=== PATIENT | female | born 1990 | race Caucasian/White ===

== ENCOUNTER 2018-09-24 08:00 | Outpatient (CLI) | payer OTHER ==
[2018-09-24 12:39] LABS: EOSINOPHILS # (AUTO) 0.1 10^3/uL (0.0-0.7); EOSINOPHILS % (AUTO) 2.5 %; HGB - HEMOGLOBIN 12.6 g/dL (12.0-16.0); LYMPHOCYTES # (AUTO) 1.3 10^3/uL (1.5-3.5); LYMPHOCYTES % (AUTO) 34.2 %; MEAN CORPUSCULAR HEMOGLOBIN 32.7 pg (27.0-31.0); MEAN CORPUSCULAR HGB CONC 34.1 g/dL (32.0-36.0); MEAN CORPUSCULAR VOLUME 95.9 fL (81.0-99.0); MEAN PLATELET VOLUME 8.4 fL (7.9-10.8); MONOCYTES # (AUTO) 0.4 10^3/uL (0.0-1.0); NEUTROPHILS % (AUTO) 52.3 %; PLT - PLATELET COUNT 238 10^3/uL (130-450); RED BLOOD COUNT 3.85 10^6/uL (4.20-5.40); RED CELL DISTRIBUTION WIDTH 12.9 % (12.0-15.0); WHITE BLOOD COUNT 3.8 x10^3/uL (4.8-10.8)
[2018-09-24 12:57] LABS: ALBUMIN 4.1 g/dL (3.2-5.5); ALBUMIN/GLOBULIN RATIO 1.4 (1.0-2.2); BILIRUBIN,TOTAL 0.9 mg/dL (0.2-1.0); CALCIUM 9.4 mg/dL (8.5-10.3); CREATININE 0.7 mg/dL (0.4-1.0); TOTAL PROTEIN 7.1 g/dL (6.7-8.2)
[2018-09-24 13:08] LABS: THYROID STIMULATING HORMONE 1.07 uIU/mL (0.34-5.60)
[2018-09-24 13:19] LABS: FOLATE 20.5 ng/mL (5.90 - >24.8)
[2018-09-26 14:36] LABS: ANA SCREEN NEGATIVE (NEGATIVE)
== END 2018-09-24 23:59 | disposition home or self-care (01) ==
LOC: LAB.N 08:00
PROVIDERS: ATTEND Nurse Practitioner
DX: R53.83 Other fatigue (principal); E55.9 Vitamin D deficiency, unspecified
CPT/HCPCS: 36415; 80053; 82306; 82607; 82746; 84443; 85025; 86038

== ENCOUNTER 2018-09-26 08:00 | Outpatient (CLI) | payer OTHER ==
[2018-09-26 09:08] LABS: % IRON SATURATION 28 % (20-50); IRON 92 ug/dL (28-170); TOTAL IRON BINDING CAPACITY 328 ug/dL (250-450); TRANSFERRIN 234 mg/dL (192-382)
== END 2018-09-26 23:59 | disposition home or self-care (01) ==
LOC: LAB.R 08:00
PROVIDERS: ATTEND Nurse Practitioner
DX: D72.819 Decreased white blood cell count, unspecified (principal); D64.9 Anemia, unspecified
CPT/HCPCS: 82728; 83540; 84466

== ENCOUNTER 2018-11-18 15:45 | Outpatient (CLI) | payer OTHER ==
--- NOTE | 2018-11-19 00:52 | Ultrasound Report ---
Reason: TEST POSITIVE Procedure Date: 11/18/2018 Accession Number: [id number] / [id number] Procedure: US - OB First Trimester CPT Code: FULL RESULT: EXAM: FIRST TRIMESTER OBSTETRIC ULTRASOUND (Less than 11 weeks) EXAM DATE: 11/18/2018 04:22 PM. CLINICAL HISTORY: test positive. LMP: Unknown. COMPARISONS: None. TECHNIQUE: Transabdominal ultrasound examination with static image documentation. CLINICAL DATES: EGA 8 weeks 2 days with BON 06/28/2019 based on LMP. ASSESSMENT: Gestational Sac: Single intrauterine. Embryo: CRL (crown-rump length) 17.5 mm = 8 weeks 2 days with an BON of 06/28/2019. Cardiac activity: 183 beats per minute. Yolk sac: 3 mm. Amniotic fluid: Not accurately assessed at this gestational age. Early placenta: Not visible at this gestational age. Other: Small perigestational hemorrhage measuring 1 x 1.8 x 0.7 cm noted. MATERNAL STRUCTURES: Uterus: Anteverted. Unremarkable. Cervix: Closed. Right Ovary/Adnexa: Ovary not seen. No adnexal abnormality. Limitation secondary to bowel gas.. Left Ovary/Adnexa: The ovary measures 5.2 x 3 x 4.8 cm, volume 39.1 cc. 3.2 x 3 x 3.2 cm complex left ovarian cyst with debris and mild peripheral flow. No mural nodules or thickened septations. Free Fluid: None. Other: None. IMPRESSION: 1. Single viable intrauterine at EGA 8 weeks 2 days with BON 06/28/2019 based on crown-rump length, which is concordant with clinical dates. 2. Assigned dating is BON 06/28/2019 based on LMP. 3. Small perigestational hemorrhage measuring 1 x 1.8 x 0.7 cm. 4. 3.2 cm complex left ovarian cyst most compatible with a corpus luteum or hemorrhagic cyst. Otherwise, both ovaries and adnexa are normal. RADIA
== END 2018-11-18 15:46 | disposition home or self-care (01) ==
LOC: DI 15:45
PROVIDERS: ATTEND Nurse Practitioner Obstetrics & Gynecology
DX: O34.81 Maternal care for other abnormalities of pelvic organs, first trimester (principal); N83.202 Unspecified ovarian cyst, left side; Z3A.08 8 weeks gestation of pregnancy
CPT/HCPCS: 76801

== ENCOUNTER 2018-11-28 08:00 | Outpatient (CLI) | payer OTHER ==
[2018-11-28 14:50] LABS: MUDS CUTOFF CONCENTRATIONS CUTOFF CONC BELOW:
[2018-11-28 15:02] LABS: BILIRUBIN,URINE NEGATIVE (NEGATIVE); GLUCOSE, URINE (UA) NEGATIVE (NEGATIVE); KETONES,URINE (UA) NEGATIVE (NEGATIVE); LEUKOCYTE ESTERASE, URINE NEGATIVE (NEGATIVE); NITRITE,URINE NEGATIVE (NEGATIVE); OCCULT BLOOD,URINE NEGATIVE (NEGATIVE); PROTEIN,URINE NEGATIVE (NEGATIVE); UROBILINOGEN,URINE 0.2 (NORMAL) E.U./dL (NORMAL)
[2018-11-28 15:04] LABS: CLARITY,URINE CLEAR (CLEAR)
[2018-11-28 15:12] LABS: BACTERIA,URINE None Seen /HPF (None Seen); RBC,URINE None Seen /HPF (0-5); SQUAMOUS EPITHELIAL CELL,UR MOD Squamous (<= Few)
[2018-11-28 15:15] LABS: AMPHETAMINE SCREEN,URINE NEGATIVE (NEGATIVE); BENZODIAZEPINES SCREEN, URINE NEGATIVE (NEGATIVE); COCAINE SCREEN URINE NEGATIVE (NEGATIVE); METHADONE SCREEN, URINE NEGATIVE (NEGATIVE); METHAMPHETAMINES SCREEN, URINE NEGATIVE (NEGATIVE); OPIATE SCREEN, URINE NEGATIVE (NEGATIVE); OXYCODONE SCREEN, URINE NEGATIVE (NEGATIVE); PROPOXYPHENE SCREEN, URINE NEGATIVE (NEGATIVE); TRICYCLIC ANTIDEPRESSANT,URINE NEGATIVE (NEGATIVE)
== END 2018-11-28 23:59 | disposition home or self-care (01) ==
LOC: LAB.R 08:00
PROVIDERS: ATTEND Nurse Practitioner Obstetrics & Gynecology
DX: Z36.89 Encounter for other specified antenatal screening (principal)
CPT/HCPCS: 80306; 81001; 87086

== ENCOUNTER 2018-11-28 11:40 | Outpatient (CLI) | payer OTHER ==
[2018-11-28 12:10] LABS: BASOPHILS # (AUTO) 0.1 10^3/uL (0.0-0.1); BASOPHILS % (AUTO) 0.6 %; EOSINOPHILS % (AUTO) 0.4 %; LYMPHOCYTES # (AUTO) 1.8 10^3/uL (1.5-3.5); LYMPHOCYTES % (AUTO) 19.9 %; MEAN CORPUSCULAR HEMOGLOBIN 32.4 pg (27.0-31.0); MEAN CORPUSCULAR HGB CONC 34.3 g/dL (32.0-36.0); MEAN CORPUSCULAR VOLUME 94.4 fL (81.0-99.0); MEAN PLATELET VOLUME 7.5 fL (7.9-10.8); MONOCYTES # (AUTO) 0.6 10^3/uL (0.0-1.0); MONOCYTES % (AUTO) 6.8 %; NEUTROPHILS # (AUTO) 6.4 10^3/uL (1.5-6.6); NEUTROPHILS % (AUTO) 72.3 %; PLT - PLATELET COUNT 260 10^3/uL (130-450); RED CELL DISTRIBUTION WIDTH 12.6 % (12.0-15.0); WHITE BLOOD COUNT 8.8 x10^3/uL (4.8-10.8)
[2018-11-29 08:57] LABS: HEPATITIS C ANTIBODY NON-REACTIVE (NON-REACTIVE)
[2018-11-29 08:58] LABS: HEPATITIS B SURFACE ANTIGEN NON-REACTIVE (NON-REACTIVE)
[2018-11-29 13:18] LABS: HIV AG/AB 4TH GEN NON-REACTIVE (NON-REACTIVE)
== END 2018-11-28 11:41 | disposition home or self-care (01) ==
LOC: LAB 11:40
PROVIDERS: ATTEND Nurse Practitioner Obstetrics & Gynecology
DX: Z36.89 Encounter for other specified antenatal screening (principal)
CPT/HCPCS: 36415; 80306; 81001; 81599; 85025; 86592; 86762; 86803; 86850; 86900; 86901; 87340; 87389

== ENCOUNTER 2019-01-25 | Outpatient (CLI) | payer OTHER | END 2019-01-25 23:59 | disposition home or self-care (01) ==

== ENCOUNTER 2019-01-31 09:05 | Outpatient (CLI) | payer OTHER ==
--- NOTE | 2019-02-01 09:55 | Ultrasound Report ---
Reason: ENCOUNTER FOR OTHER SPECIFIED SCREENING Procedure Date: 01/31/2019 Accession Number: [id number] / [id number] Procedure: US - OB Detailed Eval CPT Code: FULL RESULT: EXAM: COMPLETE OBSTETRICAL ULTRASOUND EXAM DATE: 01/31/2019 11:31 AM. CLINICAL HISTORY: anatomic survey. COMPARISON: None. TECHNIQUE: Real-time sonographic evaluation of the fetus performed by the removable prosthodontist. Multiple manufacturers representative static images were saved for review. Additional transvaginal imaging to more accurately evaluate cervical length/placental position/etc. DATING: Established EGA 18 weeks 6 days with BON 06/28/2019 based on established date of conception. EGA 18 weeks 6 days with BON 06/28/2019 based on first ultrasound. EGA 19 weeks 0 days with BON 06/27/2019 based on the current ultrasound. GENERAL EVALUATION [place] . Cardiac activity: 146 bpm. movement: Visualized. Presentation: Cephalic. Placenta: Anterior position. No evidence for previa. Umbilical cord: 3 vessel cord. Central placental cord origin. Amniotic fluid: Subjectively normal. MVP 4.1 cm. KATE 14.2 cm. BIOMETRY Bi-Parietal Diameter (BPD): 4.0 cm, 18 weeks 2 days Head Circumference (HC): 16.0 cm, 18 weeks 6 days Abdominal Circumference (AC): 14.9 cm, 20 weeks 1 day Femur Length (FL): 2.8 cm, 18 weeks 5 days Estimated Weight: 287 g, 75 percentile for weeks/days. ANATOMY The intracranial structures, profile, face/nose/lips, spine, 4 chamber heart and outflow tracts, stomach, abdominal wall and cord insertion, diaphragm, kidneys, bladder, and extremities were visualized and demonstrate no abnormality. MATERNAL STRUCTURES Uterus: Unremarkable. Cervix: Long and closed. Transabdominal length 5.0 cm. Right ovary/adnexa: Unremarkable. Left ovary/adnexa: Unremarkable. Free fluid: None. IMPRESSION: 1. [place] live intrauterine with gestational age 18 weeks 6 days based on established later conception. 2. Estimated weight is within expected limits for assigned dating. 3. Normal anatomic survey. No anatomic abnormalities are detected at this time. RADIA
== END 2019-01-31 09:06 | disposition home or self-care (01) ==
LOC: DI 09:05
PROVIDERS: ATTEND Nurse Practitioner Obstetrics & Gynecology
DX: Z36.89 Encounter for other specified antenatal screening (principal)
CPT/HCPCS: 76811

== ENCOUNTER 2019-03-29 10:08 | Outpatient (CLI) | payer OTHER ==
[2019-03-29 11:26] LABS: HGB - HEMOGLOBIN 10.1 g/dL (12.0-16.0); MEAN CORPUSCULAR HEMOGLOBIN 32.6 pg (27.0-31.0); MEAN CORPUSCULAR HGB CONC 33.6 g/dL (32.0-36.0); MEAN CORPUSCULAR VOLUME 97.1 fL (81.0-99.0); MEAN PLATELET VOLUME 9.7 fL (7.9-10.8); RED BLOOD COUNT 3.1 10^6/uL (4.20-5.40); RED CELL DISTRIBUTION WIDTH 12.3 % (12.0-15.0); WHITE BLOOD COUNT 8.6 x10^3/uL (4.8-10.8)
== END 2019-03-29 10:09 | disposition home or self-care (01) ==
LOC: LAB 10:08
PROVIDERS: ATTEND Nurse Practitioner Obstetrics & Gynecology
DX: Z36.89 Encounter for other specified antenatal screening (principal)
CPT/HCPCS: 36415; 82950; 85027; 86850

== ENCOUNTER 2019-05-20 10:22 | Outpatient (CLI) | payer OTHER ==
[2019-05-20 10:45] LABS: HGB - HEMOGLOBIN 11.8 g/dL (12.0-16.0); MEAN CORPUSCULAR HEMOGLOBIN 31.3 pg (27.0-31.0); MEAN CORPUSCULAR HGB CONC 32.2 g/dL (32.0-36.0); MEAN CORPUSCULAR VOLUME 97.1 fL (81.0-99.0); MEAN PLATELET VOLUME 10.7 fL (7.9-10.8); RED BLOOD COUNT 3.77 10^6/uL (4.20-5.40); RED CELL DISTRIBUTION WIDTH 13.8 % (12.0-15.0); WHITE BLOOD COUNT 7.2 x10^3/uL (4.8-10.8)
== END 2019-05-20 10:23 | disposition home or self-care (01) ==
LOC: LAB 10:22
PROVIDERS: ATTEND Nurse Practitioner Obstetrics & Gynecology
DX: O99.019 Anemia complicating pregnancy, unspecified trimester (principal); Z3A.00 Weeks of gestation of pregnancy not specified
CPT/HCPCS: 36415; 85027

== ENCOUNTER 2019-06-03 10:30 | Outpatient (CLI) | payer OTHER ==
[2019-06-03 21:50] LABS: TRICHOMONAS VAGINALIS DNA NEGATIVE (NEGATIVE)
== END 2019-06-03 23:59 | disposition home or self-care (01) ==
LOC: LAB.R 10:30
PROVIDERS: ATTEND Nurse Practitioner Obstetrics & Gynecology
DX: Z36.85 Encounter for antenatal screening for Streptococcus B (principal)
CPT/HCPCS: 87491; 87591; 87661; 87797

== ENCOUNTER 2019-06-27 12:05 | Outpatient (CLI) | payer OTHER ==
[2019-06-27 12:51] LABS: BASOPHILS % (AUTO) 0.3 %; EOSINOPHILS % (AUTO) 0.3 %; HGB - HEMOGLOBIN 12.7 g/dL (12.0-16.0); MEAN CORPUSCULAR HEMOGLOBIN 31.8 pg (27.0-31.0); MEAN CORPUSCULAR HGB CONC 32.6 g/dL (32.0-36.0); MEAN CORPUSCULAR VOLUME 97.5 fL (81.0-99.0); MEAN PLATELET VOLUME 11.6 fL (7.9-10.8); MONOCYTES # (AUTO) 0.7 10^3/uL (0.0-1.0); MONOCYTES % (AUTO) 8.1 %; NEUTROPHILS % (AUTO) 67.6 %; PLT - PLATELET COUNT 186 10^3/uL (130-450); RED CELL DISTRIBUTION WIDTH 13.2 % (12.0-15.0); WHITE BLOOD COUNT 8.8 x10^3/uL (4.8-10.8)
[2019-06-27] MEDS ORDERED: ACETAMINOPHEN 500 MG TABLET PO ONE (13:00)
[2019-06-27 13:12] LABS: CREATININE,URINE 19.5 mg/dL
--- NOTE | 2019-06-27 13:15 | PROVIDER PROGRESS NOTE ---
- HPI Chief Complaint: Hypertension/PIH (28yo at 39 6/7 weeks A+ GBS neg sent from clinic for evaluation of HTN) Current : 28yo A+ GBS neg at 39 6/7 sent from clinic for evaluation of HTN 130's/95- 100. Pt notes mild posterior headache but otherwise is very anxious. Reports normal activity. No bleeding or leaking of fluid. H/O IOL for mild HTN in first . otherwise uncomplicated. H EDU 06/28/19 Gestation 39 Weeks and 6 Days 3 Para 2 Vital Signs Temperature 97.7 F 06/27/19 12:20 Heart Rate 100 06/27/19 12:20 Respiratory Rate 20 06/27/19 12:20 Blood Pressure 134/89 H 06/27/19 12:20 O2 Saturation 100 06/27/19 12:20 Temperature 97.7 F 06/27/19 12:20 Heart Rate 100 06/27/19 12:20 Respiratory Rate 20 06/27/19 12:20 Blood Pressure 134/89 H 06/27/19 12:20 O2 Saturation 100 06/27/19 12:20 - Procedures OB Procedure Performed: Other (KATE=8.6 Greatest vertical pocket 3.56cm Anterior grade 3 placenta, vertex. BPP 8/8 Category 1 tracing) NST Procedure: NST Procedure Start Date 06/27/19 Start Time 12:15 Patient States Movement Yes Findings: 28yo at 39+6 with HTN in the mild range (rpt BP's 130-140's/80-90's) labs significant only for mild thrombocytopenia and a persistent low grade headache that she feels is related to her anxiety. She does not want IOL. Extensive discussion about risks of HTN/preeclampsia and essentially no benefit of continued at this gestational age. She is not ready to make a decision yet and wants more time to discuss it w her garment liner and .
[2019-06-27 13:18] LABS: TOTAL PROTEIN,URINE TIMED < 6 mg/dL
[2019-06-27 14:47] VITALS: BP 141/87
--- NOTE | 2019-06-27 16:29 | PROVIDER PROGRESS NOTE ---
Subjective - Prog Note Date Prog Note Date: 06/27/19 Prog Note Time: 16:26 - Subjective Subjective: More discussion re plan. Pt very adamant about going home to settle her kids, etc. Discussed risks including seizure, stroke, abruption, etc. She agrees to return and not to drive herself. Precautions discussed. She will return in 1-2 hours for IOL. Cervical exam done, long/closed/posterior Will start with cervical ripening. Objective - Vital Signs/Intake & Output Vital Signs: Vital Signs x48h Temp Pulse Resp BP Pulse Ox 06/27/19 14:45 89 141/87 H 06/27/19 13:18 90 142/92 H 06/27/19 12:20 97.7 F 100 20 134/89 H 100 - Lab Results Fish Bones: 06/27/19 12:23 Other Labs: Lab Results x24hrs 06/27/19 06/27/19 06/27/19 Range/Units 12:23 12:23 12:23 WBC 8.8 (4.8-10.8) x10^3/uL RBC 4.00 L (4.20-5.40) 10^6/uL Hgb 12.7 (12.0-16.0) g/dL Hct 39.0 (37.0-47.0) % MCV 97.5 (81.0-99.0) fL MCH 31.8 H (27.0-31.0) pg MCHC 32.6 (32.0-36.0) g/dL RDW 13.2 (12.0-15.0) % Plt Count 186 (130-450) 10^3/uL MPV 11.6 H (7.9-10.8) fL Neut # (Auto) 6.0 (1.5-6.6) 10^3/uL Lymph # (Auto) 2.0 (1.5-3.5) 10^3/uL [place] # (Auto) 0.7 (0.0-1.0) 10^3/uL Eos # (Auto) 0.0 (0.0-0.7) 10^3/uL Baso # (Auto) 0.0 (0.0-0.1) 10^3/uL Absolute Nucleated RBC 0.00 x10^3/uL Nucleated RBC % 0.0 /100WBC Uric Acid 6.0 (2.6-7.2) mg/dL AST 20 (10-42) IU/L Lactate Dehydrogenase 151 (91-225) IU/L Urine Creatinine mg/dL Ur Total Protein Timed mg/dL Protein/Creatinin Ratio 06/27/19 Range/Units 12:14 WBC (4.8-10.8) x10^3/uL RBC (4.20-5.40) 10^6/uL Hgb (12.0-16.0) g/dL Hct (37.0-47.0) % MCV (81.0-99.0) fL MCH (27.0-31.0) pg MCHC (32.0-36.0) g/dL RDW (12.0-15.0) % Plt Count (130-450) 10^3/uL MPV (7.9-10.8) fL Neut # (Auto) (1.5-6.6) 10^3/uL Lymph # (Auto) (1.5-3.5) 10^3/uL [place] # (Auto) (0.0-1.0) 10^3/uL Eos # (Auto) (0.0-0.7) 10^3/uL Baso # (Auto) (0.0-0.1) 10^3/uL Absolute Nucleated RBC x10^3/uL Nucleated RBC % /100WBC Uric Acid (2.6-7.2) mg/dL AST (10-42) IU/L Lactate Dehydrogenase (91-225) IU/L Urine Creatinine 19.5 mg/dL Ur Total Protein Timed < 6 mg/dL Protein/Creatinin Ratio Not Reportable
== END 2019-06-27 16:50 | disposition home or self-care (01) ==
LOC: WFO 12:05 → FBP 12:07 → WFO 16:50
PROVIDERS: ATTEND Obstetrics & Gynecology
DX: O13.3 Gestational [pregnancy-induced] hypertension without significant proteinuria, third trimester (principal); O99.343 Other mental disorders complicating pregnancy, third trimester; F41.9 Anxiety disorder, unspecified; O99.89 Other specified diseases and conditions complicating pregnancy, childbirth and the puerperium; R51 Headache; Z3A.39 39 weeks gestation of pregnancy
CPT/HCPCS: 36415; 82570; 83615; 84156; 84450; 84550; 85025

== ENCOUNTER 2019-06-27 18:11 | Inpatient (IN) | payer OTHER ==
[2019-06-27] MEDS ORDERED: SODIUM CHLORIDE FLUSH 0.9% 10 ML SYRINGE IVP PRN ×2 (18:15→20:08)
[2019-06-27] MEDS ORDERED: LACTATED RINGERS 1,000 ML IV SCH ×2 (19:00→21:00)
--- NOTE | 2019-06-27 19:30 | HISTORY & PHYSICAL EXAMINATION ---
Admit History - Visit Reason Visit Reason: Other (28yo at 39 6/7 weeks by LMP c/w first and second trimester US, GBS neg A+ admitted for IOL secondary to mild gestational HTN. Pt was seen earlier today with headache which has now resolved. No visual changes, n/v/f/c or dysuria. Reports mild contractions, no bleeding or leakage of fluid. Normal activity.) - : 3 Parity: 2 Premature: 0 Ectopic: 0 : 0 Care: positive: [facility] Risk/History: positive: Pre-eclampsia, Labor induction, Other (Pt reports need for episiotomy revision secondary to pain after 6 months of first delivery. First induced at 40 weeks for mild preeclampsia. H/O macrosomia>> 4395gm male) Complications This : positive: induced HTN, Other (BP's 140's/90-100, neg protein. Iron deficiency treated, resolved) Smoking Status: Never smoker - Mother's Labs Mother's Blood Type: positive: A Mother's RH: positive: Positive GBS: positive: Group B Step Negative Rubella Status: positive: Immune (HIV/VDRL/HepB & C GC/chlam neg Iron/TIBC 92/328) Meds/Allgy - Home Medications Home Medications: Ambulatory Orders Medication Instructions Recorded Confirmed Ferrous Gluconate 240 mg PO DAILY 06/27/19 06/27/19 Pnv No.95/Ferrous Fum/Folic AC 1 tab PO DAILY 06/27/19 06/27/19 [ Formula Tablet] - Allergies Allergies/Adverse Reactions: Allergies Allergy/AdvReac Type Severity Reaction Status Date / Time No Known Drug Allergies Allergy Verified 06/27/19 12:45 Review of Systems - Constitutional Constitutional: reports: Fatigue - Cardiovascular Cariovascular: denies: Chest pain - Respiratory Respiratory: denies: Cough, Wheezing - Gastrointestinal Gastrointestinal: denies: Abdominal pain (As noted, otherwise negative) Physical - Abdominal Exam Contraction Frequency (min/apart): q2-3 Contraction Intensity: positive: Mild Uterine Resting Tone: positive: Soft - Monitoring Strip Review: positive: Category I - Presentation Presentation: positive: Vertex (Vtx by scan) - Vaginal Exam Membranes: positive: Membranes intact Dilation (in cm): 0 Effacement (%): 0 Station: positive: -3 Cervical Position: positive: Posterior Plan for Labor - Plan For Labor Plan for Labor: 28yo at 39 +6 GBS neg A+ with mild gestational HTN admitted for IOL. Cervix very unfavorable however too many contractions for miso, unable to place balloon. Will hydrate and observe. If contractions space, proceed with miso. Otherwise start pitocin. T&S sent. Previous CBC significant only for borderline thrombocytopenia. Vtx by scan Expect Exam - Exam General: Alert, Oriented x3 HEENT: Atraumatic Lungs: Clear to auscultation Cardiovascular: Regular rate (2/6 systolic murmur along LSB) Abdomen: Soft Extremities: No clubbing, Other (Trace edema) Skin: No rashes (Labia with significant varicocities R>L) Neurological: Normal gait
[2019-06-27] MEDS ORDERED: ACETAMINOPHEN 325 MG TABLET PO PRN (20:08)
[2019-06-27] MEDS ORDERED: fentaNYL 100 MCG/2 ML VIAL IVP PRN (20:08)
[2019-06-27] MEDS ORDERED: LACTATED RINGERS 1,000 ML IV ONE (20:16)
--- NOTE | 2019-06-27 20:30 | PROVIDER PROGRESS NOTE ---
Subjective - Prog Note Date Prog Note Date: 06/27/19 Prog Note Time: 20:29 - Subjective Subjective: Comfortable. Category1 tracing, contractions widely spaced after 400cc LR. Will start cytotec
[2019-06-27 20:34] LABS: BASOPHILS % (AUTO) 0.3 %; EOSINOPHILS % (AUTO) 0.1 %; HGB - HEMOGLOBIN 11.9 g/dL (12.0-16.0); LYMPHOCYTES # (AUTO) 1.9 10^3/uL (1.5-3.5); LYMPHOCYTES % (AUTO) 21.5 %; MEAN CORPUSCULAR HEMOGLOBIN 32.3 pg (27.0-31.0); MEAN CORPUSCULAR HGB CONC 33.4 g/dL (32.0-36.0); MEAN CORPUSCULAR VOLUME 96.7 fL (81.0-99.0); MEAN PLATELET VOLUME 11.6 fL (7.9-10.8); MONOCYTES # (AUTO) 0.6 10^3/uL (0.0-1.0); MONOCYTES % (AUTO) 6.4 %; NEUTROPHILS # (AUTO) 6.2 10^3/uL (1.5-6.6); NEUTROPHILS % (AUTO) 71.2 %; PLT - PLATELET COUNT 173 10^3/uL (130-450); RED BLOOD COUNT 3.68 10^6/uL (4.20-5.40); RED CELL DISTRIBUTION WIDTH 13.4 % (12.0-15.0); WHITE BLOOD COUNT 8.7 x10^3/uL (4.8-10.8)
[2019-06-27] MEDS ORDERED: miSOPROStoL 100 MCG TABLET PO SCH ×2 (21:00→23:00)
[2019-06-27] MEDS: ZOLPIDEM 5 MG TABLET PO PRN (21:16)
--- NOTE | 2019-06-27 22:58 | PROVIDER PROGRESS NOTE ---
Subjective - Prog Note Date Prog Note Date: 06/27/19 Prog Note Time: 22:56 - Subjective Subjective: Sleeping. Comfortable. VSS afeb. BP's 927-330-24-80's Category 1 tracing Few irreg contractions. S/P Miso #1 Continue IOL Objective - Vital Signs/Intake & Output Intake & Output: Intake & Output 06/24/19 06/25/19 06/26/19 06/27/19 23:59 23:59 23:59 23:59 Intake Total 1000 Balance 1000 - Lab Results Fish Bones: 06/27/19 20:23 Other Labs: Lab Results x24hrs 06/27/19 06/27/19 Range/Units 20:23 18:32 WBC 8.7 (4.8-10.8) x10^3/uL RBC 3.68 L (4.20-5.40) 10^6/uL Hgb 11.9 L (12.0-16.0) g/dL Hct 35.6 L (37.0-47.0) % MCV 96.7 (81.0-99.0) fL MCH 32.3 H (27.0-31.0) pg MCHC 33.4 (32.0-36.0) g/dL RDW 13.4 (12.0-15.0) % Plt Count 173 (130-450) 10^3/uL MPV 11.6 H (7.9-10.8) fL Neut # (Auto) 6.2 (1.5-6.6) 10^3/uL Lymph # (Auto) 1.9 (1.5-3.5) 10^3/uL [place] # (Auto) 0.6 (0.0-1.0) 10^3/uL Eos # (Auto) 0.0 (0.0-0.7) 10^3/uL Baso # (Auto) 0.0 (0.0-0.1) 10^3/uL Absolute Nucleated RBC 0.00 x10^3/uL Nucleated RBC % 0.0 /100WBC Blood Type A POSITIVE Antibody Screen NEGATIVE
[2019-06-28] MEDS ORDERED: SODIUM CHLORIDE FLUSH 0.9% 10 ML SYRINGE IVP SCH ×2 (01:00)
[2019-06-28] MEDS: ZOLPIDEM 5 MG TABLET PO PRN (01:14)
--- NOTE | 2019-06-28 01:46 | PROVIDER PROGRESS NOTE ---
Subjective - Prog Note Date Prog Note Date: 06/28/19 Prog Note Time: 01:45 - Subjective Subjective: Feeling some cramping with contractions noted on EFM. Still iregular. VSS afeb Category 1 S/P miso #2 Objective - Vital Signs/Intake & Output Intake & Output: Intake & Output 06/25/19 06/26/19 06/27/19 06/28/19 23:59 23:59 23:59 23:59 Intake Total 1000 Balance 1000 - Lab Results Fish Bones: 06/27/19 20:23 Other Labs: Lab Results x24hrs 06/27/19 06/27/19 Range/Units 20:23 18:32 WBC 8.7 (4.8-10.8) x10^3/uL RBC 3.68 L (4.20-5.40) 10^6/uL Hgb 11.9 L (12.0-16.0) g/dL Hct 35.6 L (37.0-47.0) % MCV 96.7 (81.0-99.0) fL MCH 32.3 H (27.0-31.0) pg MCHC 33.4 (32.0-36.0) g/dL RDW 13.4 (12.0-15.0) % Plt Count 173 (130-450) 10^3/uL MPV 11.6 H (7.9-10.8) fL Neut # (Auto) 6.2 (1.5-6.6) 10^3/uL Lymph # (Auto) 1.9 (1.5-3.5) 10^3/uL [place] # (Auto) 0.6 (0.0-1.0) 10^3/uL Eos # (Auto) 0.0 (0.0-0.7) 10^3/uL Baso # (Auto) 0.0 (0.0-0.1) 10^3/uL Absolute Nucleated RBC 0.00 x10^3/uL Nucleated RBC % 0.0 /100WBC Blood Type A POSITIVE Antibody Screen NEGATIVE
[2019-06-28] MEDS: OXYTOCIN/DEXTROSE 5 % 30 UNIT/500 ML BAG IV PRN ×2 (05:40→06:45)
[2019-06-28] MEDS ORDERED: miSOPROStoL 100 MCG TABLET ONE (05:42)
[2019-06-28] MEDS ORDERED: LIDOCAINE-MPF 1% 30 ML VIAL ONE (05:47)
--- NOTE | 2019-06-28 06:07 | PROVIDER PROGRESS NOTE ---
Subjective - Prog Note Date Prog Note Date: 06/28/19 Prog Note Time: 02:30 - Subjective Subjective: SROM of clear fluid. Feeling contractions a bit more VSS afeb Category1 tracing Continue to monitor. Wants to get in the tub. Objective - Vital Signs/Intake & Output Intake & Output: Intake & Output 06/25/19 06/26/19 06/27/19 06/28/19 23:59 23:59 23:59 23:59 Intake Total 1000 Balance 1000 - Lab Results Fish Bones: 06/27/19 20:23 Other Labs: Lab Results x24hrs 06/27/19 06/27/19 Range/Units 20:23 18:32 WBC 8.7 (4.8-10.8) x10^3/uL RBC 3.68 L (4.20-5.40) 10^6/uL Hgb 11.9 L (12.0-16.0) g/dL Hct 35.6 L (37.0-47.0) % MCV 96.7 (81.0-99.0) fL MCH 32.3 H (27.0-31.0) pg MCHC 33.4 (32.0-36.0) g/dL RDW 13.4 (12.0-15.0) % Plt Count 173 (130-450) 10^3/uL MPV 11.6 H (7.9-10.8) fL Neut # (Auto) 6.2 (1.5-6.6) 10^3/uL Lymph # (Auto) 1.9 (1.5-3.5) 10^3/uL [place] # (Auto) 0.6 (0.0-1.0) 10^3/uL Eos # (Auto) 0.0 (0.0-0.7) 10^3/uL Baso # (Auto) 0.0 (0.0-0.1) 10^3/uL Absolute Nucleated RBC 0.00 x10^3/uL Nucleated RBC % 0.0 /100WBC Blood Type A POSITIVE Antibody Screen NEGATIVE
--- NOTE | 2019-06-28 06:09 | DELIVERY NOTE ---
Delivery Note - Labor Labor: positive: Other (Induction/cervical ripening with misoprostol) - Infant Delivery Method Infant Delivery Method: positive: Spontaneous vaginal delivery - Cervical Ripening Method Cervical Ripening Method: positive: Misoprostil - Presentation Presentation: positive: Vertex, BART - left occiput anterior - Nuchal Cord Nuchal Cord: positive: None - Anesthetic Anesthetic Type: Anesthetic: positive: Lidocaine - 1% plain Volume: positive: Other (9cc) - Amniotic Fluid Description Amniotic Fluid Description: positive: Clear - Episiotomy Type Episiotomy Type: positive: None - Laceration Laceration: positive: 1st degree - Suture Suture Type: positive: Other (Monocryl) Suture Size: positive: 4-0 - Delivery Outcome Delivery Outcome: positive: Livebirth - [place]: positive: Placed in direct skin contact with mother (4054gm female infant apgars 8/9 delivered at 0538) sex: positive: Female - Cord Cord: positive: 3 vessels - Placenta Placenta: positive: Intact, Spontaneous (Delivered intact with traction; normally inserted cord) - Estimated Blood Loss Estimated Blood Loss (in cc): 200 - Post Delivery Events Post Delivery Events: positive: No post delivery events
[2019-06-28] MEDS ORDERED: ONDANSETRON ODT 4 MG TABLET TL PRN (06:12)
[2019-06-28] MEDS ORDERED: HYDROcod/ACETAM 5/325 MG TABLET PO PRN (06:12)
[2019-06-28] MEDS ORDERED: WITCH HAZEL/GLYCERIN 1 PAD TOP PRN (06:12)
[2019-06-28] MEDS ORDERED: HYDROCORTISONE 1% CREAM 28 GM TUBE PR PRN (06:12)
[2019-06-28] MEDS ORDERED: diphenhydrAMINE 25 MG CAPSULE PO PRN (06:12)
[2019-06-28] MEDS ORDERED: LACTATED RINGERS 1,000 ML IV SCH (07:00)
[2019-06-28] MEDS ORDERED: LIDOCAINE 1% 2 ML VIAL SUBQ ONE (07:16)
--- NOTE | 2019-06-28 07:32 | DISCHARGE SUMMARY ---
Discharge Summary Admit Date: 06/27/19 Discharging Provider: Cheyenne Ashford MD Code Status: Attempt Resuscitation Condition at Discharge: Good Discharge Disposition: 01 Home, Self Care - DIAGNOSES Admission Diagnoses: at 39 6/7 weeks with mild gestational hypertension - HPI History of Present Illness: 28yo G3 now P3 admitted for IOL at 39 6/7 weeks secondary to mild gestational HTN. Labs on admission remarkable only for borderline thrombocytopenia. - HOSPITAL COURSE Hospital Course: Because her cervix was unfavorable, she was started on misoprostol. She experienced SROM after the second dose and subsequently progressed rapidly to full dilation. After a precipitous second stage, she was delivered of a 4054gm female apgars 8/9. A small first degree laceration was repaired. EBL 200cc. Her course was uncomplicated. She was well, ambulating, tolerating a regular diet. Minimal lochia. She was DC'd home on PPD 1 with usual follow up. Planning "natural" contraception. - ALLERGIES Allergies/Adverse Reactions: Allergies Allergy/AdvReac Type Severity Reaction Status Date / Time No Known Drug Allergies Allergy Verified 06/27/19 12:45 - MEDICATIONS Home Medications: Ambulatory Orders Medication Instructions Recorded Confirmed Ferrous Gluconate 240 mg PO DAILY 06/27/19 06/27/19 Pnv No.95/Ferrous Fum/Folic AC 1 tab PO DAILY 06/27/19 06/27/19 [ Formula Tablet] - PHYSICAL EXAM AT DISCHARGE General Appearance: positive: No acute distress, Alert Neck: positive: Nml inspection Respiratory: positive: No respiratory distress Cardiovascular: positive: Regular rate & rhythm Abdomen: positive: Non-tender, No distention, Other (Fundus firm, below umbilicus) Extremities: positive: No pedal edema - LABS Result Diagrams: 06/27/19 20:23
[2019-06-28] MEDS: IBUPROFEN 600 MG TABLET PO SCH ×3 (08:19→21:34)
[2019-06-28] MEDS ORDERED: LIDOCAINE-MPF 1% 30 ML VIAL ID PRN (08:57)
[2019-06-29] MEDS: IBUPROFEN 600 MG TABLET PO SCH (08:19)
[2019-06-29 11:15] VITALS: BP 116/76
--- NOTE | 2019-06-29 12:08 | PROVIDER PROGRESS NOTE ---
Subjective - Prog Note Date Prog Note Date: 06/29/19 Prog Note Time: 12:06 - Subjective Subjective: PPD 1 Comfortable, well. Reg diet, ambulating. minimal lochia VSS afeb Abd soft, non-tender. Fundus firm below umbilicus Labia with marked decrease in varicosities. A/P Stable. Plan DC home today. Precautions discussed. F/U in 6 weeks Objective - Vital Signs/Intake & Output Vital Signs: Vital Signs x48h Temp Pulse Resp BP Pulse Ox 06/29/19 11:12 98.2 F 68 16 116/76 100 06/29/19 08:17 97.5 F L 78 16 121/96 H 99 Intake & Output: Intake & Output 06/26/19 06/27/19 06/28/19 06/29/19 23:59 23:59 23:59 23:59 Intake Total 1000 2000 Output Total 300 Balance 1000 1700 - Lab Results Fish Bones: 06/27/19 20:23
--- NOTE | 2019-06-29 12:10 | Discharge Plan ---
Discharge Plan Problem Reviewed?: Yes Disposition: Home, Self Care Condition: Good Diet: Regular Activity Restrictions: Pelvic rest Shower Restrictions: No Driving Restrictions: No No Smoking: If you smoke, Please STOP! Call for help.
--- NOTE | 2019-06-29 12:54 | Labor Flowsheet ---
Labor Flowsheet Datetime Report Generated by CPN: 06/29/2019 12:53 Datetime: 06/28/2019 19:58 VITAL SIGNS NBP Sys/Lena/Mean (mmHg): 134 : 96 : 104 Pulse: 86 LaborFlag: Labor Datetime: 06/28/2019 10:14 SpO2 (%): 100 Datetime: 06/28/2019 06:14 Membranes Ruptured Date/Time: 06/28/2019 02:30 Datetime: 06/28/2019 05:31 VAGINAL EXAM Dilatation (cm): 10.0 Effacement (%): 100 Station: 3 Exam by: Dr. Ashford Vaginal Bleeding: Normal Show Datetime: 06/28/2019 05:30 UTERINE ACTIVITY Monitor Mode: External Monitor Interventions for UA: [place] Adjusted Frequency (min): 1-2 Quality: Strong Duration (sec): 60-80 ASSESSMENT A Monitor Mode: Cpa [place] Interventions for FHR: Ultrasound Adjusted FHR Baseline Rate : 135 FHR Baseline Changes: No Baseline Change Variability: Moderate 6-25 bpm Accelerations: 15X15 Decelerations: Early Actions for Decelerations: Provider Notified COMMUNICATION Communication: Provider at Bedside Communication Comments: pt with urge to push while on BR Datetime: 06/28/2019 05:25 Vaginal Exam Comments: pushing with contractions I/O Interventions: Up to BR Patient Care Comments: pad changed Datetime: 06/28/2019 05:09 Pattern: Normal: <= 5 Contractions in 10 Minutes Resting Tone (Palpate): Relaxed Comments: FHR dropout during contraction d/t pt leaning over birthing ball and having hip pressure during contractions Pain Presence: Intermittent Pain Type: Contraction Pain Location: Abdomen; Back Pain Coping: Breathing Through Contractions Pain Assessment Comments: declines to give pain number; arrives at bedside for support MATERNAL ASSESSMENT Level of Consciousness: Fully Conscious Headache: Denies Nausea/Vomiting: Denies RUQ Epigastric Pain: Denies Comfort Measures: Breathing/Relaxation; Coaching; Back Rub Given; Family Support Datetime: 06/28/2019 04:24 Provider Notified (Name): Dr. Ashford Notification Reason: Status Update; Labor Status; Membrane Status; Uterine Activity; Pain; Patient Request Datetime: 06/28/2019 04:04 Contraction Comments: coupling/tripling pattern noted Datetime: 06/28/2019 03:24 Hygiene: Underpad Changed TEACHING Instructional Method: Verbal; Patient Instructed Plan of Care: Plan of Care Discussed Pain Management: PRN Medications Datetime: 06/28/2019 02:33 Category: Category II Membrane Status: Ruptured Membranes Rupture Method: Spontaneous Membrane Comments: Pt reports she might be leaking fluid Datetime: 06/28/2019 02:30 Stage of : Labor Pain Relief Measures: Comfort Measures Amniotic Fluid Color: Clear Amniotic Fluid Amount: Moderate Nitrazine: Positive DTR's/Clonus: DTRs 1+ Patient Position/Activity: Standing; Walking; Birthing Ball Datetime: 06/28/2019 01:14 MEDICATIONS Analgesics/Sedatives: Ambien (mg) @ 5mg PO Datetime: 06/28/2019 00:47 Cervical Ripening Agents: Cytotec @ 50mg PO Datetime: 06/28/2019 00:42 Temperature (C): 36.8 Temperature Route: Oral PAIN Pain Scale: 1 Datetime: 06/27/2019 22:41 Provider Reviewed Strip: Yes Datetime: 06/27/2019 22:11 Maternal Comments: pt resting Datetime: 06/27/2019 21:17 Respirations: 16 Breath Sounds, Left: Clear and Equal Breath Sounds, Right: Clear and Equal PATIENT CARE IV/Blood Work: IV Saline Locked Labor/Induction: Cervical Ripening Datetime: 06/27/2019 21:08 Medication Comments: IV bolus complete and IV saline locked Datetime: 06/27/2019 20:50 Cervical Ripening Agents Other: Misoprostol 50mg PO given Datetime: 06/27/2019 20:29 Oxygen Method: Room Air Datetime: 06/27/2019 19:31 Unit Routine: [place] to Room; Call Latif; Bed; Phone/Cell Phone Use; Unit Personnel; Monitorin g; IV Pumps; Safety/Fall Risk Prevention; Diet/Nutrition Services Related: Hydration; Activity and Rest Teaching Comments: pt with many questions, talked about her wishes and lack of intervention vs need for induction
== END 2019-06-29 12:52 | disposition home or self-care (01) | DRG 807 ==
LOC: WFO 18:11 → FBP 18:12 → WFO 18:14 → FBP 18:15 → OBSVTOIN 20:08 → FBP 06-28 22:15
PROVIDERS: ADMIT Obstetrics & Gynecology; ATTEND Obstetrics & Gynecology
PROC: 10E0XZZ Delivery of Products of Conception, External Approach (ICD-10-PCS; principal; 2019-06-27)
PROC: 0HQ9XZZ Repair Perineum Skin, External Approach (ICD-10-PCS; 2019-06-27)
DX: O13.4 Gestational [pregnancy-induced] hypertension without significant proteinuria, complicating childbirth (principal); Z37.0 Single live birth; Z3A.39 39 weeks gestation of pregnancy; O62.3 Precipitate labor; O70.0 First degree perineal laceration during delivery; O99.02 Anemia complicating childbirth; D50.9 Iron deficiency anemia, unspecified; O87.8 Other venous complications in the puerperium
CPT/HCPCS: 85025; 86850; 86900; 86901; A9270; J7120

== ENCOUNTER 2020-09-25 09:15 | Outpatient (CLI) | payer OTHER ==
[2020-09-25 11:53] LABS: BASOPHILS % (AUTO) 0.6 %; EOSINOPHILS # (AUTO) 0.1 10^3/uL (0.0-0.7); EOSINOPHILS % (AUTO) 1.7 %; HCT - HEMATOCRIT 40.2 % (37.0-47.0); HGB - HEMOGLOBIN 13.4 g/dL (12.0-16.0); LYMPHOCYTES # (AUTO) 1.8 10^3/uL (1.5-3.5); LYMPHOCYTES % (AUTO) 33.9 %; MEAN CORPUSCULAR HEMOGLOBIN 32.8 pg (27.0-31.0); MEAN CORPUSCULAR HGB CONC 33.3 g/dL (32.0-36.0); MEAN CORPUSCULAR VOLUME 98.3 fL (81.0-99.0); MEAN PLATELET VOLUME 9.8 fL (7.9-10.8); MONOCYTES # (AUTO) 0.4 10^3/uL (0.0-1.0); MONOCYTES % (AUTO) 6.9 %; NEUTROPHILS # (AUTO) 2.9 10^3/uL (1.5-6.6); NEUTROPHILS % (AUTO) 56.7 %; PLT - PLATELET COUNT 296 10^3/uL (130-450); RED BLOOD COUNT 4.09 10^6/uL (4.20-5.40); RED CELL DISTRIBUTION WIDTH 11.9 % (12.0-15.0); WHITE BLOOD COUNT 5.2 x10^3/uL (4.8-10.8)
== END 2020-09-25 09:16 | disposition home or self-care (01) ==
LOC: LAB.N 09:15
PROVIDERS: ATTEND Family Medicine
DX: M79.602 Pain in left arm (principal); I88.9 Nonspecific lymphadenitis, unspecified
CPT/HCPCS: 36415; 85025; 85651; 86140

== ENCOUNTER 2021-03-12 08:07 | Outpatient (CLI) | payer OTHER ==
--- NOTE | 2021-03-12 09:31 | XRAY Report ---
PROCEDURE: Chest 2 View X-Ray INDICATIONS: COUGH TECHNIQUE: 2 views of the chest. COMPARISON: None. FINDINGS: Surgical changes and devices: None. Lungs and pleura: No pleural effusions or pneumothorax. Lungs are clear. Mediastinum: Mediastinal contours are normal. Heart size is normal. Bones and chest wall: No suspicious bony abnormalities. Soft tissues appear unremarkable. IMPRESSION: No acute cardiopulmonary abnormality. Reviewed by: Victorino Robledo MD on 03/12/2021 9:30 AM PDT Approved by: Victorino Robledo MD on 03/12/2021 9:30 AM PDT Station ID: [id number]
== END 2021-03-12 23:59 | disposition home or self-care (01) ==
LOC: DI.N 08:07
PROVIDERS: ATTEND Family Medicine
DX: R05 Cough (principal); Z20.822 Contact with and (suspected) exposure to COVID-19

== ENCOUNTER 2021-05-14 07:42 | Outpatient (CLI) | payer OTHER ==
[2021-05-14 12:15] LABS: BASOPHILS % (AUTO) 0.8 %; EOSINOPHILS # (AUTO) 0.1 10^3/uL (0.0-0.7); EOSINOPHILS % (AUTO) 2.1 %; HCT - HEMATOCRIT 40.8 % (37.0-47.0); HGB - HEMOGLOBIN 13.4 g/dL (12.0-16.0); LYMPHOCYTES # (AUTO) 1.8 10^3/uL (1.5-3.5); LYMPHOCYTES % (AUTO) 33.6 %; MEAN CORPUSCULAR HGB CONC 32.8 g/dL (32.0-36.0); MEAN CORPUSCULAR VOLUME 97.4 fL (81.0-99.0); MEAN PLATELET VOLUME 10.1 fL (7.9-10.8); MONOCYTES # (AUTO) 0.5 10^3/uL (0.0-1.0); MONOCYTES % (AUTO) 9.4 %; NEUTROPHILS # (AUTO) 2.8 10^3/uL (1.5-6.6); NEUTROPHILS % (AUTO) 53.9 %; PLT - PLATELET COUNT 275 10^3/uL (130-450); RED BLOOD COUNT 4.19 10^6/uL (4.20-5.40); RED CELL DISTRIBUTION WIDTH 12.2 % (12.0-15.0); WHITE BLOOD COUNT 5.2 x10^3/uL (4.8-10.8)
[2021-05-14 12:41] LABS: BILIRUBIN,URINE NEGATIVE (NEGATIVE); GLUCOSE, URINE (UA) NEGATIVE (NEGATIVE); KETONES,URINE (UA) NEGATIVE (NEGATIVE); LEUKOCYTE ESTERASE, URINE SMALL (NEGATIVE); NITRITE,URINE NEGATIVE (NEGATIVE); OCCULT BLOOD,URINE NEGATIVE (NEGATIVE); PROTEIN,URINE NEGATIVE (NEGATIVE); UROBILINOGEN,URINE 0.2 (NORMAL) E.U./dL (NORMAL)
[2021-05-14 12:43] LABS: ALBUMIN 4.6 g/dL (3.2-5.5); ALBUMIN/GLOBULIN RATIO 1.7 (1.0-2.2); ALKALINE PHOSPHATASE 42 IU/L (42-121); ALT ALANINE AMINOTRANSFERASE 14 IU/L (10-60); AST ASPARTATE AMINOTRANSFERASE 14 IU/L (10-42); BILIRUBIN,TOTAL 1.1 mg/dL (0.2-1.0); BUN - BLOOD UREA NITROGEN 14 mg/dL (6-20); CALCIUM 9.3 mg/dL (8.5-10.3); CARBON DIOXIDE - CO2 24 mmol/L (21-32); CHLORIDE 105 mmol/L (101-111); CHOL/HDL RATIO 3.5 (<4.4); CHOLESTEROL 221 mg/dL; CREATININE 0.7 mg/dL (0.4-1.0); GFR - MDRD 98 (>89); GLUCOSE 85 mg/dL (70-100); HDL CHOLESTEROL 64 mg/dL; LDL CHOLESTEROL,CALCULATED 148 mg/dL; LDL/HDL RATIO 2.3 (<4.4); POTASSIUM 3.8 mmol/L (3.5-5.0); SODIUM 137 mmol/L (135-145); TOTAL PROTEIN 7.3 g/dL (6.7-8.2); TRIGLYCERIDES 45 mg/dL; VLDL CHOLESTEROL 9 mg/dL
[2021-05-14 12:50] LABS: CLARITY,URINE CLEAR (CLEAR)
[2021-05-14 12:55] LABS: THYROID STIMULATING HORMONE 1.54 uIU/mL (0.34-5.60)
[2021-05-14 12:58] LABS: BACTERIA,URINE Few /HPF (None Seen); RBC,URINE 0-5 /HPF (0-5); SQUAMOUS EPITHELIAL CELL,UR MOD Squamous (<= Few)
[2021-05-14 13:00] LABS: FREE T4 (FREE THYROXINE) 0.9 ng/dL (0.58-1.64)
[2021-05-14 13:23] LABS: FOLLICLE STIMULATING HORMONE 5.85 mIU/mL
[2021-05-14 13:24] LABS: LUTEINIZING HORMONE 4.85 mIU/mL
== END 2021-05-14 07:43 | disposition home or self-care (01) ==
LOC: LAB.N 07:42
PROVIDERS: ATTEND Nurse Practitioner
DX: R53.83 Other fatigue (principal); Z13.220 Encounter for screening for lipoid disorders; E55.9 Vitamin D deficiency, unspecified; R41.3 Other amnesia; N64.4 Mastodynia
CPT/HCPCS: 36415; 80053; 80061; 81001; 82306; 82607; 83001; 83002; 83721; 84439; 84443; 87086

== ENCOUNTER 2021-11-09 16:05 | Outpatient (CLI) | payer OTHER ==
[2021-11-09 16:32] LABS: BASOPHILS % (AUTO) 0.2 %; EOSINOPHILS # (AUTO) 0.1 10^3/uL (0.0-0.7); HCT - HEMATOCRIT 34.6 % (37.0-47.0); HGB - HEMOGLOBIN 11.9 g/dL (12.0-16.0); LYMPHOCYTES # (AUTO) 1.9 10^3/uL (1.5-3.5); LYMPHOCYTES % (AUTO) 20.7 %; MEAN CORPUSCULAR HEMOGLOBIN 32.2 pg (27.0-31.0); MEAN CORPUSCULAR HGB CONC 34.4 g/dL (32.0-36.0); MEAN CORPUSCULAR VOLUME 93.8 fL (81.0-99.0); MEAN PLATELET VOLUME 9.2 fL (7.9-10.8); MONOCYTES # (AUTO) 0.6 10^3/uL (0.0-1.0); MONOCYTES % (AUTO) 6.5 %; NEUTROPHILS # (AUTO) 6.6 10^3/uL (1.5-6.6); NEUTROPHILS % (AUTO) 71.4 %; PLT - PLATELET COUNT 273 10^3/uL (130-450); RED BLOOD COUNT 3.69 10^6/uL (4.20-5.40); RED CELL DISTRIBUTION WIDTH 12.1 % (12.0-15.0); WHITE BLOOD COUNT 9.3 x10^3/uL (4.8-10.8)
[2021-11-10 03:12] LABS: HBsAG SCREEN Negative (Negative)
[2021-11-10 04:13] LABS: HCV AB <0.1 s/co ratio (0.0-0.9)
[2021-11-10 06:12] LABS: HIV SCREEN 4TH GENERATION Non Reactive (Non Reactive); RPR Non Reactive (Non Reactive)
[2021-11-10 08:12] LABS: VARICELLA-ZOSTER AB IGG 2185 index (Immune >165)
== END 2021-11-09 16:06 | disposition home or self-care (01) ==
LOC: LAB 16:05
PROVIDERS: ATTEND Nurse Practitioner Obstetrics & Gynecology
DX: Z36.89 Encounter for other specified antenatal screening (principal)
CPT/HCPCS: 36415; 85025; 86592; 86762; 86787; 86803; 86850; 86900; 86901; 87340; 87389

== ENCOUNTER 2022-04-15 16:13 | Outpatient (CLI) | payer OTHER ==
--- NOTE | 2022-04-15 19:42 | Ultrasound Report ---
PROCEDURE: OB F/U or Repeat INDICATIONS: LOW LYING PLACENTA OUTSIDE/PRIOR DATING DATA: Last menstrual period (LMP): 08/16/2021. LMP-based estimated date of delivery (BON): 05/23/2022. First dating scan (date and location): 11/09/2021, physician's office. Estimated date of delivery (BON) from first dating scan: 05/22/2022. The below data below was generated using the ultrasound BON of 05/22/2022 TECHNIQUE: Real-time scanning was performed of the fetus, with image documentation and biometric measurements. Endovaginal scanning: Not performed COMPARISON: 01/07/2022 FINDINGS: General: A single living intrauterine gestation is present. Presentation: Vertex Placenta: Placental position is posterior, without previa. Amniotic fluid index: This was a limited examination. A 4.0 cm pocket was measured. The KATE was not c alculated. heart rate: There is cardiac activity. Maternal cervical canal: Long and closed Other: The low-lying placenta has resolved. The placenta is now 2.6-3.0 cm from the internal os of ce rvix. IMPRESSION: Limited targeted study which was simply obtained to demonstrate whether a low-lying plac enta has resolved. It has, in fact, resolved. Reviewed by: Abdulaziz Guzman MD on 04/15/2022 7:41 PM PDT Approved by: Abdulaziz Guzman MD on 04/15/2022 7:41 PM PDT Station ID: [id number]
== END 2022-04-15 16:14 | disposition home or self-care (01) ==
LOC: DI 16:13
PROVIDERS: ATTEND Nurse Practitioner Obstetrics & Gynecology
DX: Z08 Encounter for follow-up examination after completed treatment for malignant neoplasm (principal); Z87.59 Personal history of other complications of pregnancy, childbirth and the puerperium

== ENCOUNTER 2022-05-23 14:15 | Inpatient (IN) | payer OTHER ==
--- NOTE | 2022-05-23 14:54 | HISTORY & PHYSICAL EXAMINATION ---
Admit History - Visit Reason Visit Reason: Contractions - : 4 Parity: 3 Premature: 0 Ectopic: 0 : 3 Care: positive: [facility] Risk/History: positive: induced HTN Complications This : positive: None Smoking Status: Never smoker - Mother's Labs Mother's Blood Type: positive: A Mother's RH: positive: Positive GBS: positive: Group B Step Negative Rubella Status: positive: Immune Meds/Allgy - Home Medications Home Medications: Ambulatory Orders Medication Instructions Recorded Confirmed Ferrous Gluconate 240 mg PO DAILY 06/27/19 06/27/19 Pnv No.95/Ferrous Fum/Folic AC 1 tab PO DAILY 06/27/19 06/27/19 [ Formula Tablet] - Allergies Allergies/Adverse Reactions: Allergies Allergy/AdvReac Type Severity Reaction Status Date / Time No Known Drug Allergies Allergy Verified 06/27/19 12:45 Review of Systems - Constitutional Constitutional: denies: Fatigue, Fever, Chills, Malaise - Eyes Eyes: denies: Blurred vision, Spots in vision, Dipolpia - Cardiovascular Cariovascular: denies: Irregular heart rate, Palpitations, Chest pain, Edema - Respiratory Respiratory: denies: Cough, Wheezing, SOB at rest - Gastrointestinal Gastrointestinal: denies: Constipation, Diarrhea, Nausea, Vomiting - Genitourinary Genitourinary: denies: Dysuria - Integumentary Integumentary: denies: Rash, Pruritis - Neurological Neurological: denies: Headache - Psychiatric Psychiatric: denies: Depression, Anxiety Physical - Abdominal Exam Vital Signs: Temp Pulse Resp BP Pulse Ox O2 Flow Rate 36.4 C L 109 H 18 134/92 H 100 05/23/22 14:32 05/23/22 14:30 05/23/22 14:30 05/23/22 14:30 05/23/22 14:30 Contraction Frequency (min/apart): 4-6 Contraction Intensity: positive: Moderate Uterine Resting Tone: positive: Soft - Monitoring Heart Rate Baseline: 150 Strip Review: positive: Category I - Presentation Presentation: positive: Vertex - Vaginal Exam Membranes: positive: Membranes intact Dilation (in cm): 4 Effacement (%): 70 Station: positive: -2 Cervical Position: positive: Midposition - Speculum Exam Speculum Exam Performed: positive: No Plan for Labor - Plan For Labor I expect patient to be DC'd or transferred within 96 hours.: Yes Plan for Labor: HPI: This 31yo @ 40.0wks gestation by LMP c/w 12.2wk U/S presents to [facility] with c/o contractions. Contractions palpate moderate every 4-6 minutes with soft resting tone. SVE 4/70/-2, midposition, soft and vertex with intact membranes. She denies vaginal bleeding that is persistent but did lose her mucus plug a couple of hours ago and reports there was a pink color to it. She denies leakage of fluid and reports +FM. She states her contractions started last night and have remained "consistently inconsistent" since that time however have increased in intensity at duration throughout the morning and this afternoon. She is feeling tired and slightly discouraged by her slow progress given that this is her fourth baby. She has been a patient of [facility] for the duration of her which has remained uncomplicated with the exception of mild anemia for which she is taking FeSO4 supplementation, and low lying placenta which resolved and on 34wk U/S was 3.0cm from the cervical os. She has a history of gestational hypertension for which she takes 81mg ASA daily and has remained normotensive through the duration of her thus far. Over that past 3 weeks her BPs have been slightly elevated from baseline however remain WNL and she has persistently denies JACOB, visual disturbances, RUQ or epigastric pain and worsening edema. She will be admitted to observation status on [facility] until AROM, SROM, or active labor. She is supported by her Maximus. 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 SAB x0. Last pap unknown, No hx of abnormals. Medical Hx: no significant Surgical Hx: sinus surgery -2005; angioplasty - 07/2021 Family Hx: coronary artery disease - father; hypertension- mother; diabetes - brother, PGF Meds: PNV; Mg; FeSO4 Allergies: None known Social: , lives with Maximus. 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 Ten[employer]ism preference - Religious. No tobacco, ETOH or recreational drug use. Caffeine intake none course: A positive, antibody negative Rubella immune; varicella immune Initial U/S @ 12.4wks c/w LMP dating Genetic screening - declined FAS WNL with the exception of low lying placenta F/u at 34 wks - low lying placenta RESOLVED COVID vaccine- declined Influenza vaccine - declined Tdap vaccine - declined Glucola 120 GBS negative Physical exam: Normocephalic, atraumatic Heart RRR w/o M/G/R Lungs CTAB Abdomen gravid, soft, nontender. EFW 3800g FHR baseline 150s, moderate variability, + accels, no decels Contractions palpate moderate very 4-6 minutes with soft resting tone SVE 4/70/-2, midposition, vertex. Membranes intact Bilateral LE's trace edema Assessment: 31yo @ 40.0wks gestation Early labor GBS negative FHR Category I Plan: Pt will be placed in observation status until AROM, SROM, or active labor Intermittent heart rate auscultation Discussed AROM with next SVE in 2-4 hours for labor augmentation. Pt declines recommended IV access and declines active management of the third stage of labor. Jacuzzi PRN. Nitrous oxide PRN. Epidural per maternal request. Anticipate .
[2022-05-23] MEDS ORDERED: TRANEXAMIC ACID IN NACL 1,000 MG/100 ML BAG IV PRN (15:16)
[2022-05-23] MEDS ORDERED: CARBOPROST TROMETHAMINE 250 MCG/ML AMP IM PRN (15:16)
[2022-05-23] MEDS ORDERED: lidocaine 1% 20 ML MDV ID PRN (15:16)
[2022-05-23] MEDS ORDERED: NIFEdipine 10 MG CAPSULE PO PRN (15:16)
[2022-05-23] MEDS ORDERED: TERBUTALINE 1 MG/ML VIAL SUBQ PRN (15:16)
[2022-05-23] MEDS ORDERED: OXYTOCIN/SODIUM CHLORIDE 500 ML IV PRN (15:16)
[2022-05-23] MEDS ORDERED: hydrALAZINE INJ 20 MG/ML VIAL IVP PRN ×2 (15:16)
[2022-05-23] MEDS ORDERED: LABETALOL 20 MG/4 ML SYRINGE IVP PRN ×3 (15:16)
[2022-05-23] MEDS ORDERED: METHYLERGONOVINE 0.2 MG/ML VIAL IM PRN (15:16)
[2022-05-23] MEDS ORDERED: miSOPROStoL 200 MCG TABLET PR PRN (15:16)
[2022-05-23] MEDS ORDERED: OXYTOCIN 10 UNIT/ML VIAL IM PRN (15:16)
[2022-05-23] MEDS ORDERED: SODIUM CHLORIDE FLUSH 0.9% 10 ML SYRINGE IVP PRN (15:16)
[2022-05-23] MEDS ORDERED: SODIUM CHLORIDE FLUSH 0.9% 10 ML SYRINGE IVP SCH (16:00)
[2022-05-23] MEDS ORDERED: HYDROCORTISONE 1% CREAM 28 GM TUBE PR PRN (17:44)
[2022-05-23] MEDS ORDERED: WITCH HAZEL/GLYCERIN 1 PAD TOP PRN (17:44)
--- NOTE | 2022-05-23 17:53 | DELIVERY NOTE ---
Delivery Note - Labor Labor: positive: Spontaneous - Delivery Method Delivery Method: positive: Spontaneous vaginal delivery - Presentation Presentation: positive: Vertex, OA - occiput anterior - Nuchal Cord Nuchal Cord: positive: Present - Amniotic Fluid Description Amniotic Fluid Description: positive: Clear - Episiotomy Type Episiotomy Type: positive: None - Laceration Laceration: positive: None - Delivery Outcome Delivery Outcome: positive: Livebirth - : positive: Placed in direct skin contact with mother, Stimulated, Warmed, [place] used sex: positive: Female - Cord Cord: positive: 3 vessels - Placenta Placenta: positive: Intact, Spontaneous - Estimated Blood Loss Estimated Blood Loss (in cc): 200 - Post Delivery Events Post Delivery Events: positive: No post delivery events - Delivery Comments (Free Text/Narrative) Delivery Comments (Free Text/Narrative): Labor: This 31yo @ 40.0wks gestation by LMP c/w 12.0wk U/S presented to [facility] with c/o contractions. She was noted to be 4/80/-2 and vertex with intact membranes. FHR pattern demonstrated Category I pattern. Normal labor course. AROM occurred at 1600. Pt progressed to c/c/+3 and pushing at 1705. : Normal SVB of viable female on 05/23/2022 @ 1708. Nuchal cord x 1 was somersaulted through with ease. The was placed in maternal abdomen, stimulated, dried, and placed skin to skin. Apgars were 9/9 at 1 and 5 minutes respectively. Pt declined active management of the third stage of labor. The umbilical cord was allowed to stop pulsating at which time it was doubly clamped by CNM and cut by FOB. Cord blood was obtained. 3VC. Placenta delivered spontaneously and intact at 1727. EBL 200mL. Fourth stage: Uterine fundus firm and there is no excessive bleeding. The perineum, vagina, and cervix were inspected and noted to be intact. initiated. Family bonding well. Both mother and baby were left in stable condition.
[2022-05-23] MEDS ORDERED: ACETAMINOPHEN 500 MG TABLET PO SCH (18:00)
[2022-05-23] MEDS ORDERED: DOCUSATE SODIUM 100 MG CAPSULE PO SCH (21:00)
[2022-05-24] MEDS: IBUPROFEN 800 MG TABLET PO SCH ×3 (02:56→15:17)
--- NOTE | 2022-05-24 10:50 | Discharge Plan ---
Discharge Plan Problem Reviewed?: Yes Disposition: Home, Self Care Condition: Good Diet: Regular Activity Restrictions: No Restrictions Shower Restrictions: No Driving Restrictions: No Weight Bearing: Full Weight Instruction Topics: Vaginal After No Smoking: If you smoke, Please STOP! Call for help. Follow-up with: Criselda Gayle CNM, JOSHUA [Primary Care Provider] - 1 Week (In office visit June 01 @ 2:30pm with [facility] in [place].)
--- NOTE | 2022-05-24 11:00 | DISCHARGE SUMMARY ---
Discharge Summary Condition at Discharge: Good Discharge Disposition: 01 Home, Self Care - HOSPITAL COURSE Hospital Course: Date of Admission: 05/23/2022 Date of Discharge: 05/24/2022 Diagnosis on Admission: 1. 31yo @ 40.0wks gestation 2. Early labor 3. GBS negative 4. FHR Category I Diagnosis on Discharge: 1. 31yo PPD#1 s/p TSVD viable female 2. 3. Normal Recovery Brief History: She is a patient of [facility] who presented on 05/23/2022 with c/o contractions. Cervix was 4/80/-2 and vertex with intact membranes. She was noted to contract every 3-6 minutes with soft resting tone. She was admitted to observation on FBP for expectant management. SROM occurred at 1600 which in the bathtub. She progressed rapidly to spontaneously deliver a viable female on 05/23/2022 @ 1708. Apgars were 9/9 at 1 and 5 minutes respectively. EBL 200mL. She has been doing well in her course. She is ambulating and tolerating a regular diet. She is urinating without difficulty and her lochia is normal. Her pain is well controlled with oral medications. She is without difficulty and is bonding well with her baby. She was noted to have mildly elevated diastolic blood pressures throughout the night but denies headache, visual disturbances, RUQ or epigastric pain. She will be discharged home today on day #1 with instructions to continue taking her vitmain while and to continue taking ibuprofen and tylenol over the counter as needed for pain management. She intends to follow up with myself in 1 week for routine visit and blood pressure check or sooner if needed. She has been given precautions to call if she has any worsening fevers, chills, abdominal pain, increased vaginal bleeding or foul smelling vaginal lochai. She has also been given precautions to call if she develops headache, visual disturbances, RUQ or epigastric pain. She verbalized understanding and agrees to above plan. She denies further questions or concerns at this time. Physical exam: Normocephalic, atraumatic. Heart RRR w/o M/G/R, lungs CTAB, abdomen soft and nontender with fundus firm at U, perineum intact, light lochia rubra, bilateral LE's trace edema, mood is good. - ALLERGIES Allergies/Adverse Reactions: Allergies Allergy/AdvReac Type Severity Reaction Status Date / Time No Known Drug Allergies Allergy Verified 06/27/19 12:45 - MEDICATIONS Home Medications: Ambulatory Orders Medication Instructions Recorded Confirmed Ferrous Gluconate 240 mg PO DAILY 06/27/19 06/27/19 Pnv No.95/Ferrous Fum/Folic AC 1 tab PO DAILY 06/27/19 06/27/19 [ Formula Tablet]
[2022-05-24 18:30] VITALS: BP 127/86
--- NOTE | 2022-05-24 18:55 | Labor Flowsheet ---
Labor Flowsheet Datetime Report Generated by CPN: 05/24/2022 18:55 Datetime: 05/24/2022 17:03 VITAL SIGNS NBP Sys/Lena/Mean (mmHg): 127 : 86 : 96 Pulse: 93 Datetime: 05/23/2022 18:08 PAIN Pain Scale: 0 Datetime: 05/23/2022 18:07 Stage of : Datetime: 05/23/2022 17:39 Temperature (C): 36.4 Temperature Route: Oral Datetime: 05/23/2022 17:05 VAGINAL EXAM Dilatation (cm): 10.0 Effacement (%): 100 Station: 2 Datetime: 05/23/2022 16:30 ASSESSMENT A Monitor Mode: Doppler FHR Baseline Rate : 150 Datetime: 05/23/2022 16:00 Comments: pt. in [facility]. CNM in room and did FHT. Membrane Status: Ruptured Membranes Ruptured Date/Time: 05/23/2022 16:00 Membranes Rupture Method: Spontaneous Amniotic Fluid Color: Clear Amniotic Fluid Amount: Moderate Amniotic Fluid Odor: None
--- NOTE | 2022-05-26 17:18 | PROCEDURE REPORT ---
- HPI Current EDU 05/23/22 Gestation 40 Weeks and 0 Days 4 Para 3 Vital Signs Heart Rate 109 H 05/23/22 14:30 Respiratory Rate 18 05/23/22 14:30 Blood Pressure 134/92 H 05/23/22 14:30 O2 Saturation 100 05/23/22 14:30 Temperature 36.6 C 05/24/22 17:29 Heart Rate 95 05/24/22 17:29 Respiratory Rate 16 05/24/22 17:29 Blood Pressure 127/86 H 05/24/22 17:29 O2 Saturation 100 05/24/22 17:29 If not protocol: Oxygen Flow, liters/minute - NST Procedure NST Procedure Start Date 05/23/22 Start Time 14:24 Stop Time 14:55 Vibroacoustic Stimulation Used No Patient States Movement Yes - Results and Plan Plan: NST reactive. FHR baseline 140s, moderate variability, + accels, no decels Contractions palpate firm every 3-5 minutes with soft resting tone.
== END 2022-05-24 18:10 | disposition home or self-care (01) | DRG 807 ==
LOC: WFO 14:15 → FBP 14:18 → WFO 15:15 → FBP 15:16 → OBSVTOIN 16:41
PROVIDERS: ADMIT Nurse Practitioner Obstetrics & Gynecology; ATTEND Obstetrics & Gynecology Obstetrics
PROC: 10E0XZZ Delivery of Products of Conception, External Approach (ICD-10-PCS; principal; 2022-05-23)
DX: O13.4 Gestational [pregnancy-induced] hypertension without significant proteinuria, complicating childbirth (principal); Z37.0 Single live birth; Z3A.40 40 weeks gestation of pregnancy; O99.02 Anemia complicating childbirth; O69.81X0 Labor and delivery complicated by cord around neck, without compression, not applicable or unspecified; Z79.899 Other long term (current) drug therapy; Z82.49 Family history of ischemic heart disease and other diseases of the circulatory system; Z83.3 Family history of diabetes mellitus
CPT/HCPCS: 59025; 99215; A9270

== ENCOUNTER 2024-02-16 09:07 | Outpatient (CLI) | payer OTHER ==
[2024-02-16 09:19] LABS: BASOPHILS % (AUTO) 0.6 %; EOSINOPHILS # (AUTO) 0.1 10^3/uL (0.0-0.7); EOSINOPHILS % (AUTO) 2.2 %; HGB - HEMOGLOBIN 12.8 g/dL (12.0-16.0); LYMPHOCYTES # (AUTO) 1.7 10^3/uL (1.5-3.5); LYMPHOCYTES % (AUTO) 32.9 %; MEAN CORPUSCULAR HEMOGLOBIN 30.6 pg (27.0-31.0); MEAN CORPUSCULAR VOLUME 95.7 fL (81.0-99.0); MEAN PLATELET VOLUME 9.1 fL (7.9-10.8); MONOCYTES # (AUTO) 0.5 10^3/uL (0.0-1.0); MONOCYTES % (AUTO) 9.3 %; NEUTROPHILS # (AUTO) 2.8 10^3/uL (1.5-6.6); NEUTROPHILS % (AUTO) 54.8 %; PLT - PLATELET COUNT 283 10^3/uL (130-450); RED BLOOD COUNT 4.18 10^6/uL (4.20-5.40); RED CELL DISTRIBUTION WIDTH 12.1 % (12.0-15.0); WHITE BLOOD COUNT 5.1 x10^3/uL (4.8-10.8)
[2024-02-16 09:36] LABS: ALBUMIN 4.3 g/dL (3.2-5.5); ALBUMIN/GLOBULIN RATIO 1.6 (1.0-2.2); ALKALINE PHOSPHATASE 48 IU/L (42-121); ALT ALANINE AMINOTRANSFERASE 10 IU/L (10-60); AST ASPARTATE AMINOTRANSFERASE 12 IU/L (10-42); BILIRUBIN,TOTAL 0.4 mg/dL (0.2-1.0); BUN - BLOOD UREA NITROGEN 15 mg/dL (6-20); CALCIUM 9.4 mg/dL (8.5-10.3); CARBON DIOXIDE - CO2 28 mmol/L (21-32); CHLORIDE 107 mmol/L (101-111); CHOL/HDL RATIO 4.3 (<4.4); CHOLESTEROL 256 mg/dL; CREATININE 0.7 mg/dL (0.6-1.3); GFR - MDRD 96 (>89); GLUCOSE 80 mg/dL (74-104); HDL CHOLESTEROL 59 mg/dL; LDL CHOLESTEROL,CALCULATED 177 mg/dL; POTASSIUM 4.2 mmol/L (3.5-4.5); SODIUM 138 mmol/L (135-145); TRIGLYCERIDES 98 mg/dL; VLDL CHOLESTEROL 20 mg/dL
[2024-02-16 09:53] LABS: THYROID STIMULATING HORMONE 0.97 uIU/mL (0.34-5.60)
== END 2024-02-16 09:08 | disposition home or self-care (01) ==
LOC: LAB 09:07
PROVIDERS: ATTEND Nurse Practitioner
DX: R53.83 Other fatigue (principal); Z13.220 Encounter for screening for lipoid disorders
CPT/HCPCS: 36415; 80053; 80061; 82607; 83721; 84443; 85025

== ENCOUNTER 2025-05-01 17:09 | Inpatient (IN) ==
--- NOTE | 2025-05-01 18:07 | PROVIDER PROGRESS NOTE ---
Plan Plan: Sherice Carroll is a 34-year-old at 39 plus 6 weeks gestation presenting for labor check. She took midwives brew yesterday and contracted over the course of about 12 hours. Today the contractions stopped for a while but then returned. Contractions are becoming more intense, shorter in duration, and occurring every two to three minutes. She desires admission and to labor in the tub. Cervical exam: 4 cm dilated, 80% effaced, minus 2 station, still fairly posterior. heart tones: 155 beats per minute with moderate variability, positive accelerations, no decelerations. Reactive NST 1. Labor at 39 plus 6 weeks gestation, 2. GBS positive status - Patient has been counseled on the risks of GBS and declining GBS prophylaxis - Patient understands significant risks - Patient is hoping to delay rupture of membranes until nearing delivery - Has never been GBS + in the past.
[2025-05-01] MEDS ORDERED: LACTATED RINGERS 1,000 ML IV PRN (18:13)
[2025-05-01] MEDS ORDERED: LABETALOL 20 MG/4 ML SYRINGE IVP PRN ×5 (18:13→21:43)
[2025-05-01] MEDS ORDERED: SODIUM CHLORIDE FLUSH 0.9% 10 ML SYRINGE IVP PRN (18:13)
[2025-05-01] MEDS ORDERED: METHYLERGONOVINE 0.2 MG/ML VIAL IM PRN (18:13)
[2025-05-01] MEDS ORDERED: hydrALAZINE INJ 20 MG/ML VIAL IVP PRN ×3 (18:13→21:43)
[2025-05-01] MEDS ORDERED: OXYTOCIN 10 UNIT/ML VIAL IM PRN (18:13)
[2025-05-01] MEDS ORDERED: TRANEXAMIC ACID IN NACL 1,000 MG/100 ML BAG IV PRN (18:13)
[2025-05-01] MEDS ORDERED: OXYTOCIN/SODIUM CHLORIDE 500 ML IV PRN ×2 (18:13→21:43)
[2025-05-01] MEDS ORDERED: TERBUTALINE 1 MG/ML VIAL SUBQ PRN (18:13)
[2025-05-01] MEDS ORDERED: CARBOPROST TROMETHAMINE 250 MCG/ML VIAL IM PRN (18:13)
[2025-05-01] MEDS ORDERED: ACETAMINOPHEN 500 MG TABLET PO PRN ×2 (18:13→21:43)
[2025-05-01] MEDS ORDERED: fentaNYL 100 MCG/2 ML VIAL IVP PRN (18:13)
--- NOTE | 2025-05-01 18:19 | HISTORY & PHYSICAL EXAMINATION ---
Admit History Smoking Status: Never smoker Other Maternal History Other Maternal History: HPI: This 34 yo @ 39+6 weeks by LMP presented to L&D in early labor with contractions q2-4 minutes. They were very strong yesterday then stopped then started this afternoon again. Upon arrival her cervix was 4/80/-2 and vertex with intact membranes. She desired admission and to labor in the tub, may consider a membrane sweep if minimal progression after a few hours. She desires a low intervention experience labor and experience. She would like to decline admission labs and IV access at this time. After counselling she has declined GBS prophylaxis (see clinic notes) and plans to give baby oral vitamin K. If is traumatic she would consider IM vitamin K for infant as long as it's discussed with her first. Understands the risks labor include to include but are not limited to section, prolonged labor, vacuum extraction, episotomy, hemorrhage, and additional risks exist re: prolonged second stage related to extraction. Reviewed back up OBGYN is available for consultations, emergency interventions and transfer of care if indicted. She has been a patient of [facility] for the duration of her which has remained uncomplicated with the exception of mild anemia she manages with PO iron. ROS: No Headache, visual changes or right upper quadrant abdominal pain. Denies significant N/V. Denies urinary urgency or dysuria. All other symptoms reviewed and were negative except per HPI. In the event of an emergency, accepts the administration of blood products. Recent BP: 138/93 Labs: Declined admission labs Last u/s EFW: FAS 12/17/2024 [facility]. EFW 89% Total maternal weight gain: 20# In the event of an emergency, ACCEPTS the administration of blood products OB hx: G1: 06/07/2014 40+5 weeks 10 min second stage 7# 11oz, epidural, episiotomy, @other hospital male- "Joe" G2: 04/22/2016 @ 40+2 weeks 9# 11oz, episiotomy, male - "Mauricio" G3: 06/28/2019 @ 39+6 Poor experience with delivering provider, associated trauma. Intact perineum, "Wagener" 8#15oz GHTTN and IOL with MD due to CNM unavailable. G4: 05/23/2022 @ 40+0,@ [facility]. Intact perineum. CNM Delivery "Tawnya" G5: Current PROBLEMS: - mild anemia -Hx of gestational hypertension -LDASA initiated rd manager Hx: Term NSVB x 4. SAB x0. Last pap (unsure) 2019, No hx of abnormals, declines at initial/ desires to defer until . Medical Hx: no significant Surgical Hx: sinus surgery -2005; vulvar angioplasty - 07/2021 Family Hx: coronary artery disease - father; hypertension- mother; diabetes - brother, PGF Meds: PNV; Mg; FeSO4 Allergies: None known Social: , lives with Maximus. 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 [employer] preference - [employer]. Maximus works for [employer] and is a reservist. No tobacco, ETOH or recreational drug use. Caffeine intake none Allergies:NKA. Medications: PNV, Iron supplement, Mg, ASA 81mg LMP: 07/26/2024 BON by LMP: 05/02/2025 U/S: c/w LMP Final BON: 05/02/2025 Pre- weight: 176 BMI: 30.0 Blood type: A+ Antibody screen: Negative CBC: H&H ./.4 PLT 205 rubella: Immune VZV: Immune HBsAg: Negative HepC: NR RPR/AB-EIA: NR HIV: NR Flu: declines COVID: declines PAP: 2019 per last documentation, desires to defer until GC/CT: completed self swab 11/12 Negative HSV: denies self or partner Genetic screening: Declines, has declined with all pregnancies AFP: Declines FAS: 12/16/2024 Placenta: Anterior Cord: 3VC KATE: 9.9cm EFW: 415g; 89th%tile 50gm GCT: 98 TDAP: Declines Breast Pump: 02/13 3rd trimester 10. 3rd trimester RPR - NR RSV Declines: GBS: 04/07/2025- POSITIVE GBS Recommended administration of intrapartum antibiotics for GBS prophylaxis. Pt states she is likely going to decline. Reviewed risk to and characteristics of labor that may elevate risk of complications from GBS including sepsis and prolonged hospitalization. EPDS 2 Delivery plan: Desires unmedicated, low intervention . Would like to labor in tub. 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 - Has oral vitamin k for baby which she brought from home. Had discussed it with her pediatric provider. If traumatic , would be open to IM vitamin K after additional discussion Physical exam: Normocephalic, atraumatic No increased work of breathing Abdomen gravid, soft, nontender. EFW 4100g FHR baseline 155, moderate variability, + accelerations, no decelerations Contractions palpate moderate every 2-3 minutes with soft resting tone SVE 4/80/-2, vertex, membranes intact Significant vulvar varicosities >right labia majora. Bilateral LE's no edema Mood is good despite significant discomfort. Assessment: 34 yo @ 39+6 weeks gestation Early labor FHR 155 Cat I GBS POSITIVE Plan: Admit to [facility] for expectant management Intermittent heart rate auscultation. Increase to continuos monitoring GBS prophylaxis ordered and declined. Extensive discussion about risks associated with declining antibiotics prior to admission. Jacuzzi PRN. Nitrous oxide PRN. Anticipate . Meds/Allgy Home Medications Ambulatory Orders Medication Instructions Recorded Confirmed magnesium oxide-magnesium amino cap PO 05/15/24 acid chelate 300 mg capsule (Magnesium (oxide/AA chelate)) vitamins no.167-folic tab PO 10/30/24 5 acid 400 mcg-dha 25 mg chewable tablet (One-A-Day ) ferrous sulfate 325 mg (65 mg 325 mg PO QDAY 11/12/24 04/28/25 iron) tablet Allergies Allergies Allergy/AdvReac Type Severity Reaction Status Date / Time No Known Drug Allergies Allergy Verified 04/28/25 09:30 [facility] Active Problems All Active Problems (Updated 05/01/25 @ 18:16 by Lily Gomes [facility]) 39 weeks gestation of (Acute) Back pain affecting in third trimester (Acute) Multigravida in second trimester (Acute) Screening cholesterol level (Acute) Allergic rhinitis (Acute) Memory loss or impairment (Acute) Vitamin D deficiency (Acute) May-Thurner syndrome (Acute) Tinnitus, bilateral (Acute) Atopic dermatitis (Acute) (Acute) Surgical History Surgical History History of angioplasty History of sinus surgery Family History Family History (Updated 11/12/24 @ 13:49 by Gala Zuluaga RN) Mother Snoring High blood pressure Father Snoring CAD (coronary artery disease) Non-Hodgkin lymphoma Brother Diabetes Paternal grandfather Diabetes Social History Social History (Updated 02/13/25 @ 10:34 by JOSHUA Bridges) Smoking Status: Never smoker Second hand tobacco smoke exposure: No Do you dip or chew tobacco?: No Do you vape?: No Living arrangement: At home Marital Status: Living Condition: With spouse/s.o. Support Person: Yes Physical Activity: other Level: Independent Do you feel safe in your home environment?: Yes History of physical, verbal, emotional, or financial abuse?: No ETOH Use: None Substance Use: denies use Are you sexually active?: Yes Sexual Practice Notes: Currently Plan for Labor Plan For Labor I expect patient to be DC'd or transferred within 96 hours.: Yes Conclusion/Plan Problem List (1) 39 weeks gestation of :
[2025-05-01] MEDS: AMPICILLIN 2 GM in SODIUM CHLORIDE 0.9% MINIBAG 100 ML IV ONE (18:20)
--- OUTSIDE RECORDS SUMMARY | 2025-05-01 18:37 | EXTERNAL MEDICAL SUMMARY RPT | Continuity of Care Document ---
Author Organization [facility] Address [address] [place] [id number] Phone Problems date description facility 2025-02-06 09:18 Encounter for superv ision of other normal , second trimester [facility] 2025-02-06 09:18 Encounter for superv ision of normal , unspecified, unspecified trimester [facility] 2025-02-07 00:04 Encounter for superv ision of other normal , second trimester [facility] 2025-02-10 15:24 Encounter for superv ision of other normal , second trimester [facility] 2025-02-11 12:44 Encounter for superv ision of other normal , second trimester [facility] 2025-02-11 12:47 Encounter for superv ision of other normal , second trimester [facility] 2025-02-12 09:14 Encounter for superv ision of other normal , second trimester [facility] 2025-02-17 07:59 Other specified dise ases and conditions complicating [facility] 2025-02-17 08:01 Sleep disorder, unspecified [facility] 2025-02-17 08:01 Vulval varices [facility] 2025-02-17 08:01 Pain in unspecified hip [facility] 2025-02-17 08:01 Dorsalgia, unspecified [facility] 2025-02-17 08:01 Other diseases of th e blood and blood-forming organs and certain disorders involving the immune mechanism complicating , third trimester [facility] 2025-02-17 08:01 Other specified dise ases and conditions complicating [facility] 2025-03-05 14:35 Encounter for superv ision of other normal , second trimester [facility] 2025-03-07 14:47 Sleep disorder, unspecified [facility] 2025-03-07 14:47 Vulval varices [facility] 2025-03-07 14:47 Pain in unspecified hip [facility] 2025-03-07 14:47 Dorsalgia, unspecified [facility] 2025-03-07 14:47 Other diseases of th e blood and blood-forming organs and certain disorders involving the immune mechanism complicating , third trimester [facility] 2025-03-07 14:47 Other specified dise ases and conditions complicating [facility] 2025-03-18 11:13 Encounter for superv ision of other normal , second trimester [facility] 2025-03-24 09:36 Supervision of elderly eulalia kumari, third trimester [facility] 2025-03-24 09:36 33 weeks [facility] 2025-04-07 14:58 Encounter for screeni ng for Streptococcus B [facility] 2025-04-07 15:32 Encounter for screeni ng for Streptococcus B [facility] 2025-04-08 00:04 Encounter for screeni ng for Streptococcus B [facility] 2025-04-10 08:27 Supervision of elderly eulalia kumari, third trimester [facility] 2025-04-10 08:27 Encounter for screeni ng for Streptococcus B [facility] 2025-04-10 08:28 Supervision of elderly eulalia kumari, third trimester [facility] 2025-04-10 08:28 Encounter for screeni ng for Streptococcus B [facility] 2025-04-10 08:28 36 weeks gestation [facility] 2025-04-17 10:07 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 [facility] 2025-04-22 10:08 Sleep disorder, unspecified [facility] 2025-04-22 10:08 Vulval varices [facility] 2025-04-22 10:08 Pain in unspecified hip [facility] 2025-04-22 10:08 Dorsalgia, unspecified [facility] 2025-04-22 10:08 Other diseases of th e blood and blood-forming organs and certain disorders involving the immune mechanism complicating , third trimester [facility] 2025-04-22 10:08 Other specified dise ases and conditions complicating [facility] 2025-04-22 10:10 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 [facility] 2025-04-24 08:03 Encounter for superv ision of other normal , third trimester [facility] 2025-04-30 13:11 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 [facility] 2025-04-30 13:12 Supervision of elderly manologrluis antonio kumari, third trimester [facility] 2025-04-30 13:12 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 [facility] 2025-04-30 13:12 39 weeks gestation [facility] 2025-05-01 18:18 39 weeks gestation [facility] Results/Labs test date facility value unit notes Result panel 1 HGB - HEMOGLOBIN 2025-02-06 10:31 [facility] 10.7 g/dl (missing) RED CELL DISTRIBUTION WIDTH 2025-02-06 10:31 [facility] 13.3 % (missing) PLT - PLATELET COUNT 2025-02-06 10:31 [facility] 205 10 3/ul (missing) RUBELLA IgG 2025-02-06 10:31 [facility] 25 iu/ml [facility] IGG REFERENC E RANGE: NON-IMMUNE <10 IU/mL EQUIVOCAL 10-14.9 IU/mL IMMUNE >14.9 IU/mL RED BLOOD COUNT 2025-02-06 10:31 [facility] 3.40 10 6/ul (missing) MEAN CORPUSCULAR HEMOGLOBIN 2025-02-06 10:31 [facility] 31.5 pg (missing) HCT - HEMATOCRIT 2025-02-06 10:31 [facility] 32.4 % (missing) ME[facility] CORPUSCULAR HGB CONC 2025-02-06 10:31 [facility] 33.0 g/dl (missing) WHITE BLOOD COUNT 2025-02-06 10:31 [facility] 9.2 x10 3/ul (missing) MEAN PLATELET VOLUME 2025-02-06 10:31 [facility] 9.5 fl (missing) MEAN CORPUSCULAR VOLUME 2025-02-06 10:31 [facility] 95.3 fl (missing) GLUCOSE,1H PP 50GM DOSE 2025-02-06 10:31 [facility] 98 mg/dl 50g Challenge 1 hr post Glucose < 140 mg/dL Reference: [place] As of December 2022 testing method has changed, this may include reference ranges. INTERPRETATION 2025-02-06 10:31 [facility] Comment (missing ) Not infected with HCV unless early or acute infection is suspected (which may be delayed in an immunocompromised individual), or other evidence exists to indicate HCV infection. Performed at: [facility], [place], [place] [id number] [employer]: Tyler Nicole MD, Phone: [phone] HBsAG SCREEN 2025-02-06 10:31 [facility] Negative (missing ) Performed at: [facility], [place], [place] [id number] [employer]: Tyler Nicole MD, Phone: [phone] HCV AB 2025-02-06 10:31 [facility] Non Reactive (missing ) (missing) HIV SCREEN 4TH GENERATION 2025-02-06 10:31 [facility] Non Reactive (missing ) HIV-1/HIV-2 antibodies and HIV-1 p24 antigen were NOT detected. There is no laboratory evidence of HIV infection. HIV Negative Performed at: [facility], [place], [place] [id number] [employer]: Tyler Nicole MD, Phone: [phone] RPR 2025-02-06 10:31 [facility] Non Reactive (missing ) Performed at: [facility], [place], [place] [id number] [employer]: Tyler Nicole MD, Phone: [phone] VARICELLA-ZOSTER AB IGG 2025-02-06 10:31 [facility] Reactive (missing ) Please note reference interval change A Reactive result is considered evidence of immunity to VZV. Reactive indicates that VZV IgG was detected consistent with previous infection and/or vaccination. A Non Reactive result indicates that VZV IgG was not detected suggesting that immunity has not been acquired. Performed at: [facility], [place], [place] [id number] [employer]: Tyler Nicole MD, Phone: [phone] Result panel 2 GROUP B STREP PCR 2025-04-07 14:57 [facility] POSITIVE (missing) (missing) Social History date description facility
[2025-05-01] MEDS: SODIUM CHLORIDE FLUSH 0.9% 10 ML SYRINGE IVP SCH (20:00)
[2025-05-01] MEDS ORDERED: LABETALOL 5 MG/1 ML 20 ML MDV IVP PRN (21:43)
[2025-05-01] MEDS ORDERED: NALOXONE 0.4 MG/ML VIAL IVP PRN (21:43)
[2025-05-01] MEDS ORDERED: SIMETHICONE CHEW 80 MG TABLET PO PRN (21:43)
--- NOTE | 2025-05-01 21:43 | DELIVERY NOTE ---
OB Labor and Delivery Note Delivery Outcome Delivery Date: 05/01/25 Delivery Comments (Free Text/Narrative) Delivery Comments (Free Text/Narrative): This 34 -year-old, G5 P 4-0-0-4 @ 39+6 weeks gestation by known LMP presented this afternoon in early labor and in condition. Cervix was 4/80/-2 and Vertex presentation by exam. GBS positive, declined prophylaxis following counselling. FHR pattern demonstrated 140-150 baseline, intermittent monitoring following initial reactive NST. Believes labor became more intense about 3pm this afternoon. Nitrous used only during second stage, otherwise a completely unmedicated delivery. SROM occurred @ 19:30 while in tub. Minimal amniotic fluid seen, but appeared clear. Once out, she labored some on the side of the bed, then on hands and knees on the floor then back to standing at bedside. She then began spontaneously pushing approximately 10 minutes prior to . : Spontaneous vaginal delivery of a viable female on 05/01/2025 @ 21:00 with mother standing at the bedside. Nuchal x 1, reduced. Mother assisted to bed while holding following . The was placed on maternal abdomen, stimulated, dried and placed skin to skin. Terminal meconium noted at time of delivery. Apgars 8 & 9 @ 1 & 5 minutes. The umbilical cord was allowed to stop pulsating at which time it was doubly clamped and cut by delivering provider. 3VC. Cord blood was obtained. Expectant management of third stage, no pitocin in the immediate period. Placenta delivered spontaneously and intact and appeared normal @ 21:22. Initial EBL, 75cc. Family desires to take placenta home and to plant it with a tree on their new property. Uterine massage was performed until uterus was deemed firm. weight 8# 10.627oz Inspection of the perineum noted a small first degree perineal laceration, largely along previous scar tissue. Laceration was homeostatic, no repair. Uterus again massaged and found to be firm. Needle and sponge counts were correct. Uterine fundus firm and there is no excessive bleeding. Tissues well approximated. Family bonding well. Both mother and baby are in stable condition.
[2025-05-01] MEDS: IBUPROFEN 600 MG TABLET PO PRN (22:06)
[2025-05-01] MEDS: AMPICILLIN 1 GM in SODIUM CHLORIDE 0.9% MINIBAG 100 ML IV SCH (23:00)
[2025-05-02] MEDS ORDERED: DOCUSATE SODIUM 100 MG CAPSULE PO SCH (09:00)
--- NOTE | 2025-05-02 13:29 | Discharge Summary ---
Discharge Summary HPI History of Present Illness: Date of Admission: 05/01/2025 Date of Discharge: 05/02/2025 Diagnosis on admission: 34 yo @ 39+6 weeks gestation Early labor FHR 155 Cat I GBS POSITIVE Diagnosis on Discharge 34 yo s/p 05/01/2025 @ 21:00 First degree perineal laceration without repair Unremarkable course Physical exam: Normocephalic, atraumatic No increased work of breathing Normal uterine involution, FF below umbilicus Small rubra bleeding Minimal perineal discomfort. Bilateral LE's no edema Mood is good. Brief History: This 34 -year-old, G5 P 4-0-0-4 @ 39+6 weeks gestation by known LMP presented this afternoon in early labor and in condition. Cervix was 4/80/-2 and Vertex presentation by exam. GBS positive, declined prophylaxis following counselling. FHR pattern demonstrated 140-150 baseline, intermittent monitoring following initial reactive NST. Believes labor became more intense about 3pm this afternoon. Nitrous used only during second stage, otherwise a completely unmedicated delivery. SROM occurred @ 19:30 while in tub. Minimal amniotic fluid seen, but appeared clear. Once out of the tub, she labored some on the side of the bed, then on hands and knees on the floor then back to standing at bedside. She then began spontaneously pushing approximately 10 minutes prior to . : Spontaneous vaginal delivery of a viable female on 05/01/2025 @ 21:00 with mother standing at the bedside. Nuchal x 1, reduced. Mother assisted to bed while holding infant following . The was placed on maternal abdomen, stimulated, dried and placed skin to skin. Terminal meconium noted at time of delivery. Apgars 8 & 9 @ 1 & 5 minutes. The umbilical cord was allowed to stop pulsating at which time it was doubly clamped and cut by delivering provider. 3VC. Cord blood was obtained. Expectant management of third stage, no pitocin in the immediate period. Placenta delivered spontaneously and intact and appeared normal @ 21:22. Initial EBL, 75cc. Family desires to take placenta home and to plant it with a tree on their new property. Uterine massage was performed until uterus was deemed firm. weight 8# 10.627oz She has been doing well in her course. She is ambulating and tolerating a regular diet. She is urinating without difficulty and her lochia is normal. Her pain is well controlled without narcotic management. She will be discharged to boarder status on day #1. She understands that just as when she's home if she needs IBU or tylenol, she would need to take from her home supply. Reviewed IBU, tylenol and stool softeners PRN both while boarding and at home . She intends to follow up with [facility] on May 12 for for a telehealth visit. She has been given precautions to call if she has any new or worsening sx such as fevers, chills, abdominal pain, increasing bleeding, or foul smelling vaginal lochia. preeclamptic precautions reviewed as well, reviewed that she is at an increased risk for preeclampsia given her hx of gestational hypertension. VZV: Immune Rubella: Immune Blood Type: A+ ALLERGIES Allergies Allergy/AdvReac Type Severity Reaction Status Date / Time No Known Drug Allergies Allergy Verified 04/28/25 09:30 MEDICATIONS Ambulatory Orders Medication Instructions Recorded Confirmed vitamins no.167-folic 1 tab PO DAILY 10/30/24 05/02/25 acid 400 mcg-dha 25 mg chewable tablet (One-A-Day ) ferrous sulfate 325 mg (65 mg 325 mg PO QDAY 11/12/24 05/02/25 iron) tablet magnesium oxide-magnesium amino 1 cap PO DAILY 5 05/02/25 acid chelate 300 mg capsule (Magnesium (oxide/AA chelate)) PHYSICAL EXAM AT DISCHARGE Vital Signs: Vital Signs x48h Temp Pulse Resp BP Pulse Ox 05/02/25 12:42 36.8 C 94 16 133/87 H 98 05/02/25 09:20 36.9 C 99 18 126/88 98 05/02/25 06:40 36.8 C 87 17 131/89 H Discharge Plan Discharge Patient Disposition: 01 Home, Self Care Medically Cleared Date:: 05/02/25 Prescriptions: Continued Magnesium (oxide/AA chelate) 300 mg capsule 1 cap PO DAILY One-A-Day 400 mcg- 25 mg tablet,chewable 1 tab PO DAILY ferrous sulfate 325 mg (65 mg iron) tablet 325 mg PO QDAY Print Language: Setswana Patient Instructions: After a Vaginal , Nutrition While , : Caring for Yourself, - Latch On Follow-up Care: Lori Mcclellan ARNP [Primary Care Provider, Family Practice]
--- NOTE | 2025-05-03 09:43 | Discharge Summary ---
Discharge Summary HPI History of Present Illness: Patient was discharged to home yesterday, however, since her BP was elevated and baby was staying, she opted to stay until baby's discharge today. Date of Admission: 05/01/2025 Date of Discharge: 05/03/2025 Diagnosis on admission: 34 yo @ 39+6 weeks gestation Early labor FHR 155 Cat I GBS POSITIVE Diagnosis on Discharge 34 yo s/p 05/01/2025 @ 21:00 First degree perineal laceration without repair Unremarkable course Mildly elevated blood pressures 132/89 Physical exam: Normocephalic, atraumatic No increased work of breathing Normal uterine involution, FF below umbilicus Small rubra bleeding Minimal perineal discomfort. Bilateral LE's no edema Mood is good. Brief History: This 34 -year-old, G5 P 4-0-0-4 @ 39+6 weeks gestation by known LMP presented this afternoon in early labor and in condition. Cervix was 4/80/-2 and Vertex presentation by exam. GBS positive, declined prophylaxis following counselling. FHR pattern demonstrated 140-150 baseline, intermittent monitoring following initial reactive NST. Believes labor became more intense about 3pm this afternoon. Nitrous used only during second stage, otherwise a completely unmedicated delivery. SROM occurred @ 19:30 while in tub. Minimal amniotic fluid seen, but appeared clear. Once out of the tub, she labored some on the side of the bed, then on hands and knees on the floor then back to standing at bedside. She then began spontaneously pushing approximately 10 minutes prior to . : Spontaneous vaginal delivery of a viable female on 05/01/2025 @ 21:00 with mother standing at the bedside. Nuchal x 1, reduced. Mother assisted to bed while holding infant following . The was placed on maternal abdomen, stimulated, dried and placed skin to skin. Terminal meconium noted at time of delivery. Apgars 8 & 9 @ 1 & 5 minutes. The umbilical cord was allowed to stop pulsating at which time it was doubly clamped and cut by delivering provider. 3VC. Cord blood was obtained. Expectant management of third stage, no pitocin in the immediate period. Placenta delivered spontaneously and intact and appeared normal @ 21:22. Initial EBL, 75cc. Family desires to take placenta home and to plant it with a tree on their new property. Uterine massage was performed until uterus was deemed firm. weight 8# 10.627oz She has been doing well in her course. She is ambulating and tolerating a regular diet. She is urinating without difficulty and her lochia is normal. Her pain is well controlled without narcotic management. She will be discharged to boarder status on day #2. She understands that just as when she's home if she needs IBU or tylenol, she would need to take from her home supply. Reviewed IBU, tylenol and stool softeners PRN both while boarding and at home . She intends to follow up with [facility] on May 12 for for a telehealth visit. She has been given precautions to call if she has any new or worsening sx such as fevers, chills, abdominal pain, increasing bleeding, or foul smelling vaginal lochia. Denies any headache, changes to vision, significant changes to swelling or RUQ pain. preeclamptic precautions reviewed at length yesterday and she verbalized understanding and importance of listing to her body. We reviewed that she is at an increased risk for preeclampsia given her hx of gestational hypertension and intermittently elevated blood pressures. Primarily a diastolic blood pressure in high 80's to low 90's. Has home BP cuff. Has been instructed to notify on-call CNM if BP >140/90 and reviewed that she would be directed to the ED if BP >150/90. Reviewed normal CBC, CMP, MTP at time of discharge. BP trend: 05/03/2025: 123/89 132/95 132/89 131/93 05/02/2025: 123/72 131/89 126/88 133/87 138/95 122/79 123/89 05/01/2025: 138/93 134/96 127/86 143/91 123/78 131/78 124/84 133/77 131/89 Reviewed options for serum labs prior to departure, patient agreeable. MTP, CMP, CBC ordered. MTP: 0.2 CBC: H&H: 12.6/37.7, PLT 237 CMP: Serum creatinine 0.6, AST 17, ALT 13 VZV: Immune Rubella: Immune Blood Type: A+ ALLERGIES Allergies Allergy/AdvReac Type Severity Reaction Status Date / Time No Known Drug Allergies Allergy Verified 04/28/25 09:30 MEDICATIONS Ambulatory Orders Medication Instructions Recorded Confirmed vitamins no.167-folic 1 tab PO DAILY 10/30/24 05/02/25 acid 400 mcg-dha 25 mg chewable tablet (One-A-Day ) ferrous sulfate 325 mg (65 mg 325 mg PO QDAY 11/12/24 05/02/25 iron) tablet magnesium oxide-magnesium amino 1 cap PO DAILY 5 05/02/25 acid chelate 300 mg capsule (Magnesium (oxide/AA chelate)) PHYSICAL EXAM AT DISCHARGE Vital Signs: Vital Signs x48h Temp Pulse Pulse Resp BP Pulse Ox 05/03/25 10:11 36.5 C 83 16 131/93 H 99 05/03/25 05:55 36.6 C 64 15 132/89 H 100 LABS 05/03/25 10:43 05/03/25 10:43 Discharge Plan Discharge Patient Disposition: 01 Home, Self Care Medically Cleared Date:: 05/03/25 Prescriptions: Continued Magnesium (oxide/AA chelate) 300 mg capsule 1 cap PO DAILY One-A-Day 400 mcg- 25 mg tablet,chewable 1 tab PO DAILY ferrous sulfate 325 mg (65 mg iron) tablet 325 mg PO QDAY Print Language: [place] Patient Instructions: After a Vaginal , Nutrition While , : Caring for Yourself, - Latch On Follow-up Care: Lori Mcclellan ARNP [Primary Care Provider, Family Practice]
[2025-05-03] MEDS: FERROUS SULFATE 325 MG TABLET PO SCH (09:56)
[2025-05-03 10:34] VITALS: TEMP 97.7; O2SAT 99
[2025-05-03 10:50] LABS: HCT - HEMATOCRIT 37.7 % (37.0-47.0); HGB - HEMOGLOBIN 12.6 g/dL (12.0-16.0); MEAN PLATELET VOLUME 10.0 fL (7.9-10.8); NRBC ABSOLUTE COUNT (AUTO) 0.00 x10^3/uL; NUCLEATED RED BLOOD CELLS AUTO 0.0 /100WBC; PLT - PLATELET COUNT 237 10^3/uL (130-450); RED CELL DISTRIBUTION WIDTH 13.6 % (12.0-15.0)
[2025-05-03 11:11] LABS: ALT ALANINE AMINOTRANSFERASE 13.0 IU/L (10-60); AST ASPARTATE AMINOTRANSFERASE 17.0 IU/L (10-42); BUN - BLOOD UREA NITROGEN 11.0 mg/dL (6-20); CARBON DIOXIDE - CO2 23.0 mmol/L (21-32); CREATININE 0.6 mg/dL (0.6-1.3); GFR - MDRD 114.0 (>89)
[2025-05-03 12:24] LABS: TOTAL PROTEIN,URINE TIMED 20.0 mg/dL
[2025-05-03 13:38] VITALS: BP 126/89
--- NOTE | 2025-05-03 13:40 | Labor Flowsheet ---
Labor Flowsheet Datetime Report Generated by CPN: 05/03/2025 13:39 Datetime: 05/03/2025 12:11 VITAL SIGNS NBP Sys/Lena/Mean (mmHg): 126 : 89 : 96 Pulse: 76 Datetime: 05/03/2025 00:04 SpO2 (%): 99 Datetime: 05/01/2025 23:30 Stage of : Datetime: 05/01/2025 21:27 Temperature (C): 37.0 Temperature Route: Oral PAIN Pain Scale: 2 Pain Presence: Intermittent Pain Type: Cramping Pain Location: Abdomen Datetime: 05/01/2025 20:50 MEDICATIONS Medication Comments: Nitrous oxide given Datetime: 05/01/2025 20:40 ASSESSMENT A Monitor Mode: External US FHR Baseline Changes: 140 Variability: 140 Datetime: 05/01/2025 20:10 FHR Baseline Rate : 140 Datetime: 05/01/2025 20:09 Comments: US tracing maternal HR Datetime: 05/01/2025 20:08 PATIENT CARE Patient Position/Activity: Hands-Knees Patient Care Comments: pt laboring on hands _ knees in tub Datetime: 05/01/2025 19:44 Membranes Ruptured Date/Time: 05/01/2025 19:30 Membranes Rupture Method: Spontaneous Amniotic Fluid Color: Clear Amniotic Fluid Amount: Small Amniotic Fluid Odor: Normal Datetime: 05/01/2025 19:38 COMMUNICATION Communication: Provider at Bedside (Annotations: Lily CNM at bs; aware of SROM) Datetime: 05/01/2025 17:49 UTERINE ACTIVITY Monitor Mode: External Frequency (min): 2 Quality: Moderate Duration (sec): 40-50 Pattern: Normal: <= 5 Contractions in 10 Minutes Resting Tone (Palpate): Relaxed Accelerations: 15X15 Communication Comments: per CNM at bedside, RN to discontinue monitoring Datetime: 05/01/2025 17:44 VAGINAL EXAM Dilatation (cm): 4.0 Effacement (%): 80 Exam by: Lily Gomes CNM
== END 2025-05-03 12:45 | disposition home or self-care (01) | DRG 807 ==
LOC: WFO 17:09 → FBP 17:13
PROVIDERS: ADMIT Nurse Practitioner; ATTEND Nurse Practitioner
DX: Z3A.39 39 weeks gestation of pregnancy; O99.02 Anemia complicating childbirth; O87.8 Other venous complications in the puerperium; Z87.59 Personal history of other complications of pregnancy, childbirth and the puerperium; O69.81X0 Labor and delivery complicated by cord around neck, without compression, not applicable or unspecified; O70.0 First degree perineal laceration during delivery; Z37.0 Single live birth; O77.0 Labor and delivery complicated by meconium in amniotic fluid; O99.824 Streptococcus B carrier state complicating childbirth